=== PATIENT | female | born 1950 | race American Indian/Alaskan Native ===

== ENCOUNTER 2018-05-13 06:24 | Day surgery (SDC) | payer OTHER, SELFPAY ==
[2018-05-13] MEDS: PROPARACAINE 0.5% OPHTH SOL 2 DROPS EYE-OP (07:03)
[2018-05-13 07:07] VITALS: BP 124/74; PULSE 64; RESP 15; TEMP 36.1; O2SAT 94
[2018-05-13] MEDS: CATARACT EYE COMPOUND (10 DROPS/SYRINGE) 3 DROPS EYE-OP (07:07)
[2018-05-13 07:08] VITALS: BMI 37.8
--- NOTE | 2018-05-13 07:35 | PM.PREOP ---
Pre-operative Note Interval Note History & Physical reviewed/Exam performed by Physician: Yes Changes to H&P: No
[2018-05-13] MEDS: CHONDROIDTIN/SOD HYALURONATE 1.05 ML SYRINGE INTRAOCULA (07:54)
[2018-05-13] MEDS: LIDOCAINE JELLY 2% 5 ML 1 APPLIC TOP (07:54)
[2018-05-13] MEDS: BALANCED SALT IRRIG SOLN NO.2 500 ML, EPINEPHrine 1 MG IRR (07:55)
[2018-05-13] MEDS: PHENYLEPHRINE/LIDOCAINE VIAL (OR) 0.2 ML EYE-OP (07:57)
--- NOTE | 2018-05-13 08:18 | PM.OP.1 ---
Operative Date/Time/Diagnoses Pre-op diagnosis: Cataract left eye Post-op diagnosis: same Procedure & Clinicians Procedure: cataract extraction with intraocular lens implant, right Same procedure as scheduled: Yes Indications: Visually significant nuclear sclerosis cataract, right Surgeon: Mark Jerome Click Yes if Unassisted: Yes Anesthesia Type: MAC +/- Operative Notes Procedure in detail: The patient was brought to the operating suite. The correct patient, surgical site and lens were confirmed. 0.5 % tetracaine drops were placed in the right eye. The patient was prepped and draped in the typical sterile manner. A lid speculum was placed in the eye. 3.5% lidocaine gel was placed on the eye. A paracentesis port was created with a side-port blade. 0.1 mL of 1% preservative free lidocaine was injected into the anterior chamber. Viscoelastic was injected into the anterior chamber. A 2.6mm keratome was used to create a clear corneal temporal incision. Cystotome and Utrata forceps were used to create a continuous curvilinear capsulorrhexis. Balanced salt solution was used to hydrodissect the nucleus. Phacoemulsification was used to remove the lens. The capsular bag was inflated with viscoelastic. A Lange ZBOO +15.5D lens was inserted into the capsule. Viscoelastic was removed and the wound hydrated. The wound was found to be leak free and the eye was assessed to be at normal physiologic pressure. The lid speculum was removed and the patient left the operating room in excellent condition. Complications: none Condition: stable Disposition: same day surgery
[2018-05-13 08:30] VITALS: BP 137/61; PULSE 64; RESP 16; TEMP 36.7; O2SAT 99
--- NOTE | 2018-05-13 08:37 | SUR.PHASEII ---
Stable post op, pt dressed when ready and left when ready and in stable condition.
== END 2018-05-13 08:40 ==
LOC: OR 06:26
PROVIDERS: Family Provider Physician Assistant; PCP Physician Assistant; Visit Provider Ophthalmology
DX: H25.12 Age-related nuclear cataract, left eye (principal); E11.9 Type 2 diabetes mellitus without complications; E78.5 Hyperlipidemia, unspecified; Z79.4 Long term (current) use of insulin
CPT/HCPCS: J0171; J2250

== ENCOUNTER 2018-05-27 07:52 | Day surgery (SDC) | payer OTHER, SELFPAY ==
[2018-05-27 08:36] VITALS: BMI 38.2
[2018-05-27] MEDS: PROPARACAINE 0.5% OPHTH SOL 2 DROPS EYE-OP (08:41)
[2018-05-27] MEDS: CATARACT EYE COMPOUND (10 DROPS/SYRINGE) 3 DROPS EYE-OP (08:48)
[2018-05-27 08:49] VITALS: BP 133/67; PULSE 65; RESP 16; TEMP 36.2; O2SAT 98
--- NOTE | 2018-05-27 09:09 | PM.PREOP ---
Pre-operative Note Interval Note History & Physical reviewed/Exam performed by Physician: Yes Changes to H&P: No
[2018-05-27] MEDS: PHENYLEPHRINE/LIDOCAINE VIAL (OR) 0.2 ML EYE-OP (09:26)
[2018-05-27] MEDS: CHONDROIDTIN/SOD HYALURONATE 1.05 ML SYRINGE INTRAOCULA (09:26)
[2018-05-27] MEDS: TETRACAINE 0.5% OPHTH DROPS 4 ML 2 DROPS EYE-LEFT (09:27)
[2018-05-27] MEDS: BALANCED SALT IRRIG SOLN NO.2 500 ML, EPINEPHrine 1 MG IRR (09:27)
[2018-05-27] MEDS: LIDOCAINE 2% INJ SDV 5 ML INJ (09:40)
[2018-05-27 09:47] VITALS: BP 131/63; PULSE 59; RESP 16; TEMP 36.3; O2SAT 97
--- NOTE | 2018-05-27 09:47 | P.OP_ITS ---
Procedure & Clinicians Procedure: cataract extraction with intraocular lens implant, left Same procedure as scheduled: Yes Indications: Age related nuclear sclerosis visually significant, left Surgeon: Mark Jerome Click Yes if Unassisted: Yes Anesthesia Type: MAC +/- Operative Notes Procedure in detail: The patient was brought to the operating suite. The correct patient, surgical site and lens were confirmed. 0.5 % tetracaine drops were placed in the left eye. The patient was prepped and draped in the typical william rile manner. A lid speculum was placed in the eye. 2% lidocainewas placed on the eye. A paracentesis port was created with a side-port blade. 0.1 mL of 1% preservative free lidocaine was injected into the anterior chamber. Viscoelastic was injected into the anterior chamber. A 2.6mm keratome was used to create a clear corneal temporal incision. Cystotome and Utrata forceps were used to create a continuous curvilinear capsulorrhexis. Balanced salt solution was used to hydrodissect the nucleus. Phacoemulsification was used to remove the lens. The capsular bag was inflated with viscoelastic. A Lange ZBOO +16.5D lens was inserted into the capsule. Viscoelastic was removed and the wound hydrated. The wound was found to be leak free and the eye was assessed to be at normal physiologic pressure. The lid speculum was removed and the patient left the operating room in excellent condition. Complications: none Condition: stable Disposition: same day surgery
== END 2018-05-27 10:09 | disposition home or self-care (01) ==
LOC: OR 07:54
PROVIDERS: PCP Physician Assistant; Visit Provider Ophthalmology
DX: H25.12 Age-related nuclear cataract, left eye (principal); E11.9 Type 2 diabetes mellitus without complications; E78.5 Hyperlipidemia, unspecified
CPT/HCPCS: J0171; J2250; J3010

== ENCOUNTER → 2019-03-04 09:53 | Outpatient (CLI) | payer OTHER, SELFPAY ==
--- NOTE | 2019-03-04 | DI.MG.S_ITS ---
BILATERAL DIGITAL SCREENING MAMMOGRAM 3D/2D WITH CAD: 03/04/2019 CLINICAL: Routine screening. Family history of breast cancer. Comparison is made to exams dated: 10/29/2016 mammogram, 08/26/2013 mammogram, and 09/10/2006 mammogram - [facility]. There are scattered fibroglandular elements in both breasts. Current study was also evaluated with a Computer Aided Detection (CAD) system. No significant masses, calcifications, or other findings are seen in either breast. There has been no significant interval change. IMPRESSION: NEGATIVE There is no mammographic evidence of malignancy. A 1 year screening mammogram is recommended. This exam was interpreted at Station ID: [id number]. NOTE: For mammograms, a report in lay terms will be sent to the patient. Approximately 15% of breast malignancies will not be visualized mammographically. In the management of a palpable breast mass, a negative mammogram must not discourage biopsy of a clinically suspicious lesion. Electronically Signed By: Saw [email or web address]/[email or web address]:03/04/2019 12:47:32 letter sent: Normal Exam ACR BI-RADS Category 1: Negative [id number]
== END ==
PROVIDERS: PCP Physician Assistant; Visit Provider Family Medicine
DX: Z12.31 Encounter for screening mammogram for malignant neoplasm of breast (principal); Z80.3 Family history of malignant neoplasm of breast
CPT/HCPCS: 77063; 77067

== ENCOUNTER → 2019-08-24 11:07 | Outpatient (ROUT) | payer OTHER, SELFPAY ==
[2019-08-24 13:00] LABS: Collection Time Urine 24 Hours; Creatinine 24 Hour Urine 1134 mg/day (800-1800); Creatinine Urine Random 64.8 mg/dL; Total Volume Urine 1750 mL
[2019-08-25 07:15] LABS: 24 Hour Ur Protein Calculated 4277 mg/24 hr (30-150)
== END ==
PROVIDERS: PCP Physician Assistant; Visit Provider Family Medicine
DX: R80.9 Proteinuria, unspecified (principal)
CPT/HCPCS: 82570; 84156

== ENCOUNTER → 2019-11-22 11:00 | Outpatient (CLI) | payer OTHER, SELFPAY ==
--- NOTE | 2019-11-22 | DI.RAD.S_ITS ---
PROCEDURE: XR RIBS LT MIN 3V W CXR1V INDICATIONS: CONTUSION OF LEFT CHEST WALL, INITIAL ENCOUNTER TECHNIQUE: 2 views of the left ribs were acquired, along with a single view chest. COMPARISON: [facility], , CHEST 1 VIEW, 09/02/2016, 16:16. FINDINGS: Surgical changes and devices: None. Minimally displaced fracture of the left lateral 6th rib. Lungs and pleura: No pleural effusions or pneumothorax. Lungs appear clear. Mediastinum: Mediastinal contours appear normal. Heart size is normal. IMPRESSION: Minimally displaced fracture involving the lateral left 6th rib. Dictated by: Humza Gil M.D. on 11/22/2019 at 13:36 Approved by: Humza Gil M.D. on 11/22/2019 at 13:38
== END ==
PROVIDERS: PCP Family Medicine; Referring Provider Family Medicine; Visit Provider Family Medicine
DX: S22.32XA Fracture of one rib, left side, initial encounter for closed fracture (principal); S20.212A Contusion of left front wall of thorax, initial encounter; X58.XXXA Exposure to other specified factors, initial encounter
CPT/HCPCS: 71101

== ENCOUNTER → 2019-11-25 08:07 | Outpatient (CLI) | payer OTHER, SELFPAY ==
--- NOTE | 2019-11-25 | DI.US.S_ITS ---
PROCEDURE: US RENAL COMPLETE INDICATIONS: CKD TECHNIQUE: Real-time scanning was performed of the kidneys and bladder, with image documentation. COMPARISON: [facility], CT, ABDOMEN/PELVIS WITH CONTRAST, 01/18/2011, 19:58. FINDINGS: Kidneys: Kidneys are normal in size. The kidneys demonstrate mildly increased generalized echogenicity. Right kidney measures 11.4 cm long; left kidney measures 11.5 cm long. Right renal cortical thickness is 1.6 cm; left renal cortical thickness is 1.4 cm. Renal cortical echotexture is normal. No hydronephrosis or nephrolithiasis. No suspicious solid mass lesions. Bladder: Pre-void bladder volume is 177 mL. Post-void residual is 0 mL. Pre-void images demonstrate no intraluminal masses or stones. On pre-void images, only the left ureteral jet can be seen with color Doppler interrogation. (Of note, ureteral jets may not be detectable in up to 25% of cases due to insufficient differences in specific gravity between ureteral and bladder urine). Miscellaneous: No free pelvic fluid. Incidental note is made of prominent vessels adjacent to the spleen. IMPRESSION: Mildly increased echogenicity is seen in the kidneys, which is consistent with chronic medical renal disease. There is no hydronephrosis. No postvoid residual. Prominent vessels are again seen adjacent to the spleen. Dictated by: Jalil Cardenas M.D. on 11/25/2019 at 12:21 Approved by: Jalil Cardenas M.D. on 11/25/2019 at 12:23
== END ==
PROVIDERS: PCP Family Medicine; Referring Provider Family Medicine; Visit Provider Student in an Organized Health Care Education/Training Program
DX: N18.2 Chronic kidney disease, stage 2 (mild) (principal)
CPT/HCPCS: 76770

== ENCOUNTER → 2019-12-14 15:37 | Outpatient (CLI) | payer OTHER, SELFPAY ==
[2019-12-14 15:54] LABS: Bacteria Urine None Seen
[2019-12-14 16:36] LABS: HEMOLYSIS < 15 (0-50); Iron 67 ug/dL (37-170)
[2019-12-14 16:37] LABS: BUN Creatinine Ratio 7.5 (6-22); Blood Urea Nitrogen 11 mg/dL (7-17); Calcium 8.5 mg/dL (8.4-10.2); Carbon Dioxide 27 mmol/L (22-32); Chloride 109 mmol/L (98-107); Estimated Glomerular Filt Rate 35.3 mL/min (>60); Glucose 183 mg/dL (80-110); HEMOLYSIS < 15 (0-50); Sodium 139 mmol/L (137-145)
[2019-12-14 16:46] LABS: Appearance Urine UA CLEAR; Bilirubin Urine UA NEGATIVE (NEGATIVE); Color Urine UA YELLOW; Glucose Urine UA TRACE g/dL (Negative); Ketones Urine UA NEGATIVE (NEGATIVE); Leukocyte Esterase Urine UA NEGATIVE (NEGATIVE); Nitrite Urine UA NEGATIVE (Negative); Occult Blood Urine UA TRACE-LYSED (Negative); Protein Urine UA 3+ (Negative)
[2019-12-14 16:48] LABS: Percent Iron Saturation 29 % (15-50); Total Iron Binding Capacity 235 ug/dL (265-497); Transferrin 172 mg/dL (206-381)
[2019-12-14 17:04] LABS: Culture Indicated Urine Cult Not Indicated
[2019-12-14 17:05] LABS: RBC Urine 0-1/HPF (0-5/HPF); Renal Epithelial Cells Urine 0-1/HPF (0-1/HPF); Squamous Epithelial Cell Urine 0-1 /HPF (0-5/HPF); Transitional Epi Cells Urine 0-1/HPF (0-5/HPF); WBC Urine 1-5/HPF (0-5/HPF)
[2019-12-14 17:12] LABS: Ferritin 18 ng/mL (11-264)
[2019-12-15 05:02] LABS: Creatinine Urine Random 104.5 mg/dL
[2019-12-15 05:09] LABS: Protein (Total) Urine Random 582 mg/dL (0-12); Protein Creatinine Ratio Urine 5.56 GRAM/24H
[2019-12-15 09:41] LABS: Parathyroid Hormone Int 93 pg/mL (15-65)
[2019-12-15 15:35] LABS: ANA Screen, IFA Negative (.); Albumin 2.9 g/dL (2.9-4.4); Alpha-1-Globulin 0.2 g/dL (0.0-0.4); Alpha-2-Globulin 0.7 g/dL (0.4-1.0); DNA (DS) Antibody 5 IU/mL (0-9); Free Kappa Lt Chains, Serum 93.9 mg/L (3.3-19.4); Free Lambda Lt Chains,Serum 50.5 mg/L (5.7-26.3); Gamma Globulin 0.8 g/dL (0.4-1.8); Globulin Total 2.6 g/dL (2.2-3.9); Protein, Total 5.5 g/dL (6.0-8.5)
[2019-12-20 13:36] LABS: Cytoplasmic C-ANCA <1:20 titer (Neg:<1:20); Perinuclear P-ANCA <1:20 titer (Neg:<1:20)
[2019-12-21 20:52] LABS: Alpha-1 Globulin, Ur 7.8 % (.); Beta Globulin, Ur 15.4 % (.); Complement C3 123 mg/dL (82-167); Gamma Globulin, Ur 15.1 % (.); M-Spike % Not Observed % (Not Observed); Urine Total Protein 430.3 mg/dL (Not Estab.)
== END ==
PROVIDERS: PCP Family Medicine; Referring Provider Student in an Organized Health Care Education/Training Program; Visit Provider Student in an Organized Health Care Education/Training Program
DX: L93.2 Other local lupus erythematosus (principal); M31.30 Wegener's granulomatosis without renal involvement; M32.10 Systemic lupus erythematosus, organ or system involvement unspecified; N00.9 Acute nephritic syndrome with unspecified morphologic changes; N05.9 Unspecified nephritic syndrome with unspecified morphologic changes; D89.89 Other specified disorders involving the immune mechanism, not elsewhere classified; D50.0 Iron deficiency anemia secondary to blood loss (chronic); N25.81 Secondary hyperparathyroidism of renal origin; R80.9 Proteinuria, unspecified; D47.2 Monoclonal gammopathy; N30.00 Acute cystitis without hematuria
CPT/HCPCS: 36415; 80048; 81001; 82570; 82728; 83516; 83540; 83550; 83883; 83970; 84155; 84156; 84165; 84166; 86038; 86160; 86225

== ENCOUNTER → 2020-01-25 12:47 | Outpatient (CLI) | payer OTHER, SELFPAY ==
[2020-01-25 14:26] LABS: Hematocrit 30.5 % (36-46); Hemoglobin 10.3 g/dL (12.0-16.0)
[2020-01-25 15:01] LABS: BUN Creatinine Ratio 16.1 (6-22); Blood Urea Nitrogen 15 mg/dL (7-17); Calcium 8.8 mg/dL (8.4-10.2); Carbon Dioxide 29 mmol/L (22-32); Chloride 110 mmol/L (98-107); Glucose 138 mg/dL (80-110); HEMOLYSIS < 15 (0-50); Potassium 3.8 mmol/L (3.4-5.1); Sodium 143 mmol/L (137-145)
[2020-01-25 17:55] LABS: Creatinine Urine Random 75.2 mg/dL
[2020-01-25 18:00] LABS: Protein (Total) Urine Random 517 mg/dL (0-12); Protein Creatinine Ratio Urine 6.87 GRAM/24H
[2020-01-26 07:09] LABS: Parathyroid Hormone Int 43 pg/mL (15-65)
== END ==
PROVIDERS: PCP Family Medicine; Referring Provider Family Medicine; Visit Provider Student in an Organized Health Care Education/Training Program
DX: N05.9 Unspecified nephritic syndrome with unspecified morphologic changes (principal); D64.9 Anemia, unspecified; N25.81 Secondary hyperparathyroidism of renal origin; R80.9 Proteinuria, unspecified
CPT/HCPCS: 36415; 80048; 82570; 83970; 84156; 85014; 85018

== ENCOUNTER → 2020-03-02 16:23 | Outpatient (CLI) | payer OTHER, SELFPAY ==
[2020-03-02 18:07] LABS: Hematocrit 24.7 % (36-46); Hemoglobin 8.2 g/dL (12.0-16.0)
[2020-03-02 18:24] LABS: BUN Creatinine Ratio 7.5 (6-22); Blood Urea Nitrogen 10 mg/dL (7-17); Calcium 8.7 mg/dL (8.4-10.2); Carbon Dioxide 26 mmol/L (22-32); Chloride 111 mmol/L (98-107); Estimated Glomerular Filt Rate 39.7 mL/min (>60); Glucose 151 mg/dL (80-110); HEMOLYSIS < 15 (0-50); Potassium 3.7 mmol/L (3.4-5.1); Sodium 140 mmol/L (137-145)
[2020-03-02 18:26] LABS: Creatinine Urine Random 120.3 mg/dL
[2020-03-02 18:33] LABS: Protein (Total) Urine Random 522 mg/dL (0-12); Protein Creatinine Ratio Urine 4.33 GRAM/24H
[2020-03-04 07:07] LABS: Parathyroid Hormone Int 42 pg/mL (15-65)
== END ==
PROVIDERS: Student in an Organized Health Care Education/Training Program; PCP Family Medicine; Referring Provider Internal Medicine Nephrology; Visit Provider Internal Medicine Nephrology
DX: N05.9 Unspecified nephritic syndrome with unspecified morphologic changes (principal)
CPT/HCPCS: 36415; 80048; 82570; 83970; 84156; 85014; 85018

== ENCOUNTER → 2020-03-05 12:13 | Outpatient (CLI) | payer OTHER, SELFPAY ==
[2020-03-05 12:49] LABS: Hematocrit 25.8 % (36-46); Hemoglobin 8.7 g/dL (12.0-16.0)
[2020-03-05 13:02] LABS: HEMOLYSIS < 15 (0-50); Iron 91 ug/dL (37-170)
[2020-03-05 13:13] LABS: Percent Iron Saturation 35 % (15-50); Total Iron Binding Capacity 260 ug/dL (265-497); Transferrin 186 mg/dL (206-381)
[2020-03-05 13:22] LABS: Ferritin 9 ng/mL (11-264)
== END ==
PROVIDERS: PCP Family Medicine; Referring Provider Student in an Organized Health Care Education/Training Program; Visit Provider Student in an Organized Health Care Education/Training Program
DX: D50.0 Iron deficiency anemia secondary to blood loss (chronic) (principal); D64.9 Anemia, unspecified
CPT/HCPCS: 36415; 82728; 83540; 83550; 85014; 85018

== ENCOUNTER → 2020-03-29 15:46 | Outpatient (CLI) | payer OTHER, SELFPAY ==
[2020-03-29 16:04] LABS: Hematocrit 29.3 % (36-46); Hemoglobin 9.7 g/dL (12.0-16.0)
[2020-03-29 16:17] LABS: BUN Creatinine Ratio 9.6 (6-22); Blood Urea Nitrogen 17 mg/dL (7-17); Calcium 8.9 mg/dL (8.4-10.2); Carbon Dioxide 26 mmol/L (22-32); Chloride 111 mmol/L (98-107); Estimated Glomerular Filt Rate 28.3 mL/min (>60); Glucose 221 mg/dL (80-110); HEMOLYSIS < 15 (0-50); Potassium 4.1 mmol/L (3.4-5.1); Sodium 142 mmol/L (137-145)
[2020-03-29 16:25] LABS: HEMOLYSIS < 15 (0-50); Iron 30 ug/dL (37-170)
[2020-03-29 16:36] LABS: Percent Iron Saturation 11 % (15-50); Total Iron Binding Capacity 268 ug/dL (265-497); Transferrin 204 mg/dL (206-381)
[2020-03-29 16:52] LABS: Ferritin 11 ng/mL (11-264)
== END ==
PROVIDERS: PCP Family Medicine; Referring Provider Student in an Organized Health Care Education/Training Program; Visit Provider Student in an Organized Health Care Education/Training Program
DX: N05.9 Unspecified nephritic syndrome with unspecified morphologic changes (principal); D50.9 Iron deficiency anemia, unspecified; D64.9 Anemia, unspecified
CPT/HCPCS: 36415; 80048; 82728; 83540; 83550; 85014; 85018

== ENCOUNTER → 2020-05-03 13:27 | Outpatient (CLI) | payer OTHER, SELFPAY ==
[2020-05-03 16:13] LABS: Hematocrit 30.9 % (36-46); Hemoglobin 10.2 g/dL (12.0-16.0)
[2020-05-03 16:38] LABS: HEMOLYSIS < 15 (0-50); Iron 51 ug/dL (37-170)
[2020-05-03 16:43] LABS: BUN Creatinine Ratio 11.4 (6-22); Blood Urea Nitrogen 13 mg/dL (7-17); Calcium 8.9 mg/dL (8.4-10.2); Carbon Dioxide 28 mmol/L (22-32); Chloride 111 mmol/L (98-107); Estimated Glomerular Filt Rate 47.4 mL/min (>60); Glucose 118 mg/dL (80-110); HEMOLYSIS < 15 (0-50); Potassium 3.4 mmol/L (3.4-5.1); Sodium 141 mmol/L (137-145)
[2020-05-03 16:49] LABS: Percent Iron Saturation 20 % (15-50); Total Iron Binding Capacity 250 ug/dL (265-497); Transferrin 177 mg/dL (206-381)
[2020-05-03 17:16] LABS: Ferritin 19 ng/mL (11-264)
[2020-05-03 19:25] LABS: Creatinine Urine Random 99.9 mg/dL
[2020-05-03 20:36] LABS: Microalbumi Creatinin Ratio Ur 3523.5 ug/mg CR (<30)
== END ==
PROVIDERS: PCP Family Medicine; Referring Provider Student in an Organized Health Care Education/Training Program; Visit Provider Student in an Organized Health Care Education/Training Program
DX: N05.9 Unspecified nephritic syndrome with unspecified morphologic changes (principal); D50.0 Iron deficiency anemia secondary to blood loss (chronic); D64.9 Anemia, unspecified; R80.9 Proteinuria, unspecified
CPT/HCPCS: 36415; 80048; 82043; 82570; 82728; 83540; 83550; 85014; 85018

== ENCOUNTER → 2020-05-31 09:15 | Outpatient (CLI) | payer OTHER, SELFPAY ==
--- NOTE | 2020-05-31 09:17 | DI.ECHO.S_ITS ---
[facility] +---------+ : : [address] : [place] : : : : [id number] : : : : Phone: [phone]+ Echocardiogram Report + + :Name: EDELMIRA GUTIERREZ Study Date: 05/31/2020 Height: 60 in : :[facility] ReadingLocation: Weight: 186 lb : : Gender: Female BSA: 1.8 m2 : :: 1950 Age: 69 yrs BP: 134/70 mmHg: :Reason For Study: PALPITATIONS : :Ordering Physician: ELLEN, : :EMMA JONES Performed By: Asha Marinelli : :Referring: EMMA BAILEY : + + Interpretation Summary There is mild concentric left ventricular hypertrophy. The ejection fraction is estimated to be 60-65%. The left atrium is severely dilated. There is mild aortic regurgitation. The ascending aorta is mildly enlarged. Procedure: A two-dimensional transthoracic echocardiogram with color flow and Doppler was performed. The study quality was technically adequate. There is no prior echocardiogram noted for this patient. The patient was in sinus bradycardia with heart rates between 52-59 bpm during the exam. Left Ventricle: The left ventricle is normal in size. There is mild concentric left ventricular hypertrophy. The ejection fraction is estimated to be 60-65%. Left ventricular wall motion is normal. Diastolic parameters suggest a relaxation abnormality of the left ventricle, consistent with probable normal filling pressures. Right Ventricle: The right ventricle is normal in size and function. Atria: The left atrium is severely dilated. The right atrium is mildly dilated. There is no Doppler evidence for an interatrial shunt. Mitral Valve: The mitral valve is normal in structure and function. There is trace mitral regurgitation. Aortic Valve: The aortic valve is trileaflet. The aortic valve opens well. The aortic valve is slightly calcified. There is no aortic valve stenosis. There is mild aortic regurgitation. Tricuspid Valve: The tricuspid valve is normal in structure and function. There is trace tricuspid regurgitation. Pulmonary artery pressures cannot be estimated because of the lack of a measurable TR jet velocity but the IVC suggests a CVP of around 3 mmHg. Pulmonic Valve: The pulmonic valve leaflets are thin and pliable; valve motion is normal. There is mild pulmonic regurgitation. Great Vessels: The aortic root is normal size. The ascending aorta is mildly enlarged. The IVC is of normal diameter and collapses greater than 50% with a sniff. This suggests a low right atrial pressure of 3 mm Hg. Pericardium/ Pleura There is no pericardial effusion. There is no pleural effusion. MMode/2D Measurements & Calculations LVIDd: 4.9 cm LVOT diam: 2.1 cm LVIDs: 3.2 cm Ao root diam: 3.2 cm FS: 35.9 % asc Aorta Diam: 3.4 cm EPSS: 0.74 cm Ao Arch Diam (Prox Trans): 3.1 cm IVSd: 1.2 cm LVPWd: 1.3 cm LV arciniega. diameter/BSA (cm/m^2): 2.7 LV sys. diameter/BSA (cm/m^2): 1.7 LA A2 area: 27.3 cm2 RA long axis: 5.2 cm LA A4 area: 23.6 cm2 RA area: 20.7 cm2 LA length (vol): 5.6 cm RA vol: 69.8 ml LA vol: 97.8 ml RA : 38.5 ml/m2 LA vol index: 54.0 ml/m2 IVC diam: 1.6 cm RVD1 (basal): 3.1 cm TAPSE: 2.5 cm Doppler Measurements & Calculations Ao V2 max: 191.0 cm/sec LVOT Max Maged: 127.2 cm/sec Ao V2 mean: 126.0 cm/sec LV V1 max P.5 mmHg Ao max P.6 mmHg LV V1 VTI: 32.3 cm Ao mean P.4 mmHg DAVE(I,D): 2.5 cm2 Ao V2 VTI: 44.8 cm DAVE(V,D): 2.3 cm2 sev ratio: 0.72 DAVE indexed to BSA (cm^2/m^2): 1.4 MV E max maged: 89.8 cm/sec PA V2 max: 89.6 cm/sec MV A max maged: 105.9 cm/sec PA V2 mean: 53.0 cm/sec MV E/A: 0.85 PA mean P.4 mmHg Med Peak E' Maged: 6.3 cm/sec PA pr(Accel): 12.2 mmHg E/E' med: 14.2 Lat Peak E' Maged: 7.3 cm/sec E/E' lat: 12.3 E/e' average: 13.3 MV dec time: 0.25 sec SV(LVOT): 110.6 ml Reading Physician:12:47 PM
== END ==
PROVIDERS: PCP Family Medicine; Referring Provider Family Medicine; Visit Provider Family Medicine
DX: I35.1 Nonrheumatic aortic (valve) insufficiency (principal); I77.89 Other specified disorders of arteries and arterioles; R00.2 Palpitations
CPT/HCPCS: 93306

== ENCOUNTER → 2020-07-09 16:44 | Outpatient (CLI) | payer OTHER, SELFPAY ==
[2020-07-09 17:31] LABS: BUN Creatinine Ratio 7.9 (6-22); Blood Urea Nitrogen 11 mg/dL (7-17); Calcium 8.8 mg/dL (8.4-10.2); Carbon Dioxide 25 mmol/L (22-32); Chloride 112 mmol/L (98-107); Estimated Glomerular Filt Rate 37.7 mL/min (>60); Glucose 161 mg/dL (80-110); HEMOLYSIS < 15 (0-50); Sodium 141 mmol/L (137-145)
[2020-07-09 17:38] LABS: Creatinine Urine Random 116.1 mg/dL
[2020-07-09 17:59] LABS: Protein (Total) Urine Random 710 mg/dL (0-12); Protein Creatinine Ratio Urine 6.11 GRAM/24H
== END ==
PROVIDERS: PCP Family Medicine; Referring Provider Student in an Organized Health Care Education/Training Program; Visit Provider Student in an Organized Health Care Education/Training Program
DX: N05.9 Unspecified nephritic syndrome with unspecified morphologic changes (principal)
CPT/HCPCS: 36415; 80048; 82570; 84156

== ENCOUNTER → 2020-11-02 15:18 | Outpatient (CLI) | payer OTHER, SELFPAY ==
[2020-11-02 16:28] LABS: Add Manual Diff / Slide Review NO; Basophils Absolute Auto 0 /uL (0-100); Basophils Percent Auto 0.6 % (0-2); Eosinophils Absolute Auto 200 /uL (0-450); Eosinophils Percent Auto 4.3 % (2-4); Hematocrit 29.9 % (36-46); Hemoglobin 10.2 g/dL (12.0-16.0); Lymphocytes Absolute Auto 2000 /uL (1100-4500); Mean Corpuscular HGB Conc 34.2 % (30-36); Mean Corpuscular Hemoglobin 29.6 PG (26-34); Mean Corpuscular Volume 86.5 fL (80-100); Monocytes Absolute Auto 400 /uL (0-900); Monocytes Percent Auto 7.6 % (3-14); Neutrophils Absolute Auto 2800 /uL (1500-7000); Neutrophils Percent Auto 51.5 % (50-75); Platelet Count 252 X10^3/uL (150-400); Red Blood Cell Count 3.46 X10^6/uL (4.0-5.2); Red Cell Distribution Width 14.4 % (11.6-14.8); White Blood Cell Count 5.5 X10^3/uL (4.5-11.0)
[2020-11-02 16:58] LABS: Hemoglobin A1C% w Est Avg Glu 6.3 % (4.0-6.0)
[2020-11-02 17:01] LABS: Alanine Aminotransferase 15 IU/L (<35); Albumin 2.9 g/dL (3.5-5.0); Alkaline Phosphatase 78 U/L (38-126); Aspartate Aminotransferase 23 IU/L (14-36); BUN Creatinine Ratio 10.5 (6-22); Bilirubin Total 0.5 mg/dL (0.2-1.3); Blood Urea Nitrogen 18 mg/dL (7-17); Carbon Dioxide 24 mmol/L (22-32); Chloride 112 mmol/L (98-107); Cholesterol 209 mg/dL (140-199); Estimated Glomerular Filt Rate 29.5 mL/min (>60); Glucose 150 mg/dL (80-110); HDL Cholesterol 36 mg/dL (40-60); HEMOLYSIS < 15 (0-50); LDL Cholesterol Calculated 132 mg/dL (<100); Potassium 3.8 mmol/L (3.4-5.1); Sodium 140 mmol/L (137-145); Total Protein 5.9 g/dL (6.3-8.2); Triglycerides 206 mg/dL (35-150)
[2020-11-02 18:39] LABS: Creatinine Urine Random 72.3 mg/dL
[2020-11-02 18:56] LABS: Protein (Total) Urine Random 586 mg/dL (0-12)
[2020-11-03 11:21] LABS: Parathyroid Hormone Int 35 pg/mL (15-65)
== END ==
PROVIDERS: PCP Physician Assistant; Referring Provider Student in an Organized Health Care Education/Training Program; Visit Provider Student in an Organized Health Care Education/Training Program
DX: R60.0 Localized edema (principal); E11.9 Type 2 diabetes mellitus without complications; N05.9 Unspecified nephritic syndrome with unspecified morphologic changes; D64.9 Anemia, unspecified; N25.81 Secondary hyperparathyroidism of renal origin; R80.9 Proteinuria, unspecified
CPT/HCPCS: 36415; 80053; 80061; 82570; 83036; 83970; 84156; 85025

== ENCOUNTER → 2020-11-21 10:15 | Outpatient (CLI) | payer OTHER, SELFPAY ==
[2020-11-21 12:09] LABS: BUN Creatinine Ratio 10.6 (6-22); Blood Urea Nitrogen 16 mg/dL (7-17); Calcium 8.8 mg/dL (8.4-10.2); Carbon Dioxide 28 mmol/L (22-32); Chloride 111 mmol/L (98-107); Estimated Glomerular Filt Rate 34.3 mL/min (>60); Glucose 109 mg/dL (80-110); HEMOLYSIS < 15 (0-50); Potassium 3.3 mmol/L (3.4-5.1); Sodium 142 mmol/L (137-145)
[2020-11-21 16:17] LABS: Creatinine Urine Random 26.9 mg/dL
[2020-11-21 16:25] LABS: Protein (Total) Urine Random 389 mg/dL (0-12); Protein Creatinine Ratio Urine 14.46 GRAM/24H
== END ==
PROVIDERS: PCP Physician Assistant; Referring Provider Student in an Organized Health Care Education/Training Program; Visit Provider Student in an Organized Health Care Education/Training Program
DX: N05.9 Unspecified nephritic syndrome with unspecified morphologic changes (principal); R80.9 Proteinuria, unspecified
CPT/HCPCS: 36415; 80048; 82570; 84156

== ENCOUNTER → 2020-11-27 16:31 | Outpatient (CLI) | payer OTHER, SELFPAY ==
[2020-11-27 18:32] LABS: BUN Creatinine Ratio 8.9 (6-22); Blood Urea Nitrogen 15 mg/dL (7-17); Calcium 8.7 mg/dL (8.4-10.2); Carbon Dioxide 24 mmol/L (22-32); Chloride 111 mmol/L (98-107); Estimated Glomerular Filt Rate 30.3 mL/min (>60); Glucose 145 mg/dL (80-110); HEMOLYSIS < 15 (0-50); Potassium 4.1 mmol/L (3.4-5.1); Sodium 141 mmol/L (137-145)
== END ==
PROVIDERS: PCP Physician Assistant; Referring Provider Student in an Organized Health Care Education/Training Program; Visit Provider Student in an Organized Health Care Education/Training Program
DX: N05.9 Unspecified nephritic syndrome with unspecified morphologic changes (principal)
CPT/HCPCS: 36415; 80048

== ENCOUNTER → 2021-01-07 14:57 | Outpatient (CLI) | payer OTHER, SELFPAY ==
[2021-01-07 15:55] LABS: Hematocrit 29.4 % (36-46)
[2021-01-07 16:26] LABS: BUN Creatinine Ratio 8.3 (6-22); Blood Urea Nitrogen 12 mg/dL (7-17); Calcium 8.7 mg/dL (8.4-10.2); Carbon Dioxide 26 mmol/L (22-32); Chloride 111 mmol/L (98-107); Estimated Glomerular Filt Rate 36.1 mL/min (>60); Glucose 233 mg/dL (80-110); HEMOLYSIS < 15 (0-50); Potassium 3.4 mmol/L (3.4-5.1); Sodium 141 mmol/L (137-145)
[2021-01-07 16:29] LABS: Creatinine Urine Random 167.8 mg/dL
[2021-01-07 17:30] LABS: Protein (Total) Urine Random 3092 mg/dL (0-12); Protein Creatinine Ratio Urine 18.42 GRAM/24H
== END ==
PROVIDERS: PCP Physician Assistant; Referring Provider Student in an Organized Health Care Education/Training Program; Visit Provider Student in an Organized Health Care Education/Training Program
DX: N05.9 Unspecified nephritic syndrome with unspecified morphologic changes (principal); D64.9 Anemia, unspecified; R80.9 Proteinuria, unspecified
CPT/HCPCS: 36415; 80048; 82570; 84156; 85014; 85018

== ENCOUNTER → 2021-02-11 14:31 | Outpatient (CLI) | payer OTHER, SELFPAY ==
[2021-02-11 15:30] LABS: Blood Urea Nitrogen 14 mg/dL (7-17); Calcium 8.2 mg/dL (8.4-10.2); Carbon Dioxide 25 mmol/L (22-32); Chloride 111 mmol/L (98-107); Estimated Glomerular Filt Rate 28.6 mL/min (>60); Glucose 176 mg/dL (80-110); HEMOLYSIS < 15 (0-50); Potassium 4.2 mmol/L (3.4-5.1); Sodium 137 mmol/L (137-145)
[2021-02-11 16:10] LABS: Protein (Total) Urine Random 531 mg/dL (0-12); Protein Creatinine Ratio Urine 12.06 GRAM/24H
== END ==
PROVIDERS: PCP Physician Assistant; Referring Provider Student in an Organized Health Care Education/Training Program; Visit Provider Family Medicine
DX: N05.9 Unspecified nephritic syndrome with unspecified morphologic changes (principal); R60.9 Edema, unspecified
CPT/HCPCS: 36415; 80048; 82570; 84156

== ENCOUNTER 2021-03-09 14:31 | Emergency (ER) | payer OTHER, SELFPAY ==
[2021-03-09 14:41] VITALS: BP 116/56; PULSE 58; RESP 18; TEMP 36.8; O2SAT 99; BMI 37.0
--- NOTE | 2021-03-09 14:50 | DI.RAD.S_ITS ---
PROCEDURE: XR LUMBAR SPINE 2-3V INDICATIONS: POP WITH SEVERE PAIN TECHNIQUE: To views of the lumbar spine were acquired. COMPARISON: [facility], , L-SPINE 2-3 VIEWS, 04/21/2012, 16:05. FINDINGS: Bones: 5 [id number] vertebrae are present. There is a mild leftward curvature of the lumbar spine centered at L4. Grade 1 anterolisthesis is redemonstrated at L4-5, measuring approximately 0.7 cm. There is minimal retrolisthesis at L1-L2 and L2-L3 also redemonstrated. No vertebral body compression fractures. There is multilevel mild to moderate degenerative disc disease throughout the lumbar spine. There is also moderate facet arthropathy in the lower lumbar spine. Soft tissues: Overlying bowel gas pattern is normal. No suspicious soft tissue calcifications. IMPRESSION: 1. No definite acute fracture or subluxation. 2. Mild leftward curvature of the lumbar spine and mild multilevel spondylolisthesis redemonstrated. 3. Mild to moderate multilevel degenerative disc disease and moderate facet arthropathy in the lower lumbar spine. Dictated by: Rocky Lynne M.D. on 03/09/2021 at 14:23 Approved by: Rocky Lynne M.D. on 03/09/2021 at 14:26
--- NOTE | 2021-03-09 17:08 | ED.BACK ---
HPI - Back Pain/Injury General Chief Complaint: Back Pain/Injury Stated Complaint: lower back popped, clamy,sweaty and dizzy Time Seen by Provider: 03/09/21 17:06 Source: patient Limitations: no limitations History of Present Illness HPI Narrative: 70-year-old female nonsmoker with history of diabetes and hyperlipidemia presents with a friend and a chief complaint of back pain while performing a [place] dance just prior to arrival. She states that she had done a little ?hop ?move and leaned back of it and felt a pop in her lower back. She states the pain is worse when she moves and improves with rest. She did not fall. She denies any numbness, tingling, weakness or footdrop. She denies any fever, chills or use of blood thinners. She denies the loss of control of bowel or bladder. Her pain is worse when she moves and improves with rest Related Data Home Medications Medication Instructions Recorded Confirmed metformin 500 mg tablet,extended 1,000 mg PO DAILY #0 01/18/11 05/27/18 release 24 hr (Glucophage XR) insulin glargine 100 unit/mL 55 unit SUBCUT DAILY 05/13/18 05/27/18 subcutaneous solution (Lantus U-100 Insulin) Previous Rx's Medication Instructions Recorded aspirin 325 mg tablet,delayed 325 mg PO QDAY #30 tab 09/04/16 release atorvastatin 40 mg tablet (Lipitor) 40 mg PO HS #30 tab 09/04/16 lisinopril 20 mg tablet 20 mg PO QDAY #30 tab 09/04/16 lidocaine 5 % topical patch 1 patch TOP DAILY #15 each 03/09/21 (Lidoderm) Allergies Allergy/AdvReac Type Severity Reaction Status Date / Time fluoxetine Allergy Unknown edema Verified 03/09/21 14:40 naproxen Allergy Unknown its too Verified 03/09/21 14:40 much for me ofloxacin Allergy Unknown Unknown Verified 03/09/21 14:40 Review of Systems Review of Systems Narrative: GENERAL: Denies chills, fatigue, malaise, fever, sweats. HEENT: Denies sinus pain, ear pain, sore throat, difficulty swallowing, dizziness. RESPIRATORY: Denies dyspnea, cough, wheezing, hemoptysis, sputum. CARDIOVASCULAR: Denies chest pain, palpitations, orthopnea, edema, GASTROINTESTINAL: Denies nausea, vomiting, abdominal pain, diarrhea, constipation, melena. : Denies dysuria, frequency, incontinence, hematuria, urinary retention. MUSCULOSKELETAL: See HPI SKIN: Denies rash, skin lesions, or other NEUROLOGIC: Denies weakness, headache, numbness, change in speech, confusion, seizures, incoordination. PSYCHIATRIC: No concerning psychosocial issues. 12 point review of systems is negative except for those stated above Patient History Social History household members: spouse and children Smoking Status: Never smoker Smoking Status: Never smoker Substance Use Type: does not use Exam Narrative Exam Narrative: GENERAL: [70 year old patient appears stated age. Well-developed patient, in mild distress. HEAD: Atraumatic. Normocephalic. EYES: Pupils equal round and reactive. Extraocular motions intact. No scleral icterus. No injection or drainage. ENT: Nose without bleeding, purulent drainage. Throat without erythema, tonsillar hypertrophy or exudate. Airway patent. NECK: Trachea midline. Non tender CARDIOVASCULAR: Regular rate and rhythm without murmurs, gallops, or rubs. RESPIRATORY: Clear to auscultation. Breath sounds equal bilaterally. No wheezes, rales, or rhonchi. GASTROINTESTINAL: Abdomen soft, non-tender, nondistended. EXTREMITIES: No edema or joint tenderness. BACK: slasher tender but free of any obvious external abnormalities. Patient exam notes decreased range of motion and muscle spasm, but no CVA tenderness, or vertebral point tenderness. There are no symptoms of cauda equina such as saddle anesthesia, and decreased reflexes, decreased sensation or strength. NEURO: AOx3. SKIN: No rash or erythema of visible areas Initial Vital Signs Initial Vital Signs: Vital Signs Temperature 98.3 F 03/09/21 14:41 Pulse Rate 58 L 03/09/21 14:41 Respiratory Rate 18 03/09/21 14:41 Blood Pressure 116/56 L 03/09/21 14:41 Pulse Oximetry 99 03/09/21 14:41 Course Orders Ordered: ED Orders 03/09/21 14:50 XR lumbar spine 2-3V Stat Discontinued Medications Cyclobenzaprine HCl (Cyclobenzaprine 10 Mg Prepack) 1 bottle MISC SEEINSTR ONE Stop: 03/09/21 17:31 Last Admin: 03/09/21 17:39 Dose: 1 bottle Documented by: ASHLYN Lidocaine (Lidocaine Patch 1 Each Adh..Patch) 1 each TOP NOW ONE Stop: 03/09/21 17:31 Last Admin: 03/09/21 17:39 Dose: 1 each Documented by: ASHLYN Vital Signs Vital signs: Vital Signs - 8 hr 03/09/21 14:41 Temperature 98.3 F Pulse Rate 58 L Respiratory Rate 18 Blood Pressure 116/56 L Pulse Oximetry 99 MDM - Back Pain/Injury Imaging Data Extremity x-ray #1: Radiologist's Impression: Heather Roberts??70??F??1950 ? Allergy/Adv: fluoxetine, naproxen, ofloxacin (More??) Close Lumbar Spine X-Ray (Signed) Rocky Lynne - 03/09/21 Echocardiogram Ultrasound (Signed) EleanorNils - 05/31/20 Renal Ultrasound (Signed) Jalil Cardenas - 11/25/19 Ribs X-Ray (Signed) Humza Gil - 11/22/19 Mammogram Screening (Signed) Saw Robins - 03/04/19 Radiology - Historical 09/03/16 Radiology - Historical 09/02/16 Radiology - Historical 09/02/16 Launch?[place] [address] XRay Report Signed Patient: Heather Roberts MR#: [id number] : 1950 Acct:[id number] Age/Sex: 70 / F Date of Service: 03/09/21 Loc: ED Accession Number: [id number] ?? Procedure: XR lumbar spine 2-3V Ordering Provider: Lori Rice D.O. PROCEDURE:? XR LUMBAR SPINE 2-3V ? INDICATIONS:? POP WITH SEVERE PAIN ? TECHNIQUE:? To views of the lumbar spine were acquired.? ? COMPARISON:? [facility], , L-SPINE 2-3 VIEWS, 04/21/2012, 16:05. ? FINDINGS:? ? Bones:? 5 [id number] vertebrae are present.? There is a mild leftward curvature of the lumbar spine centered at L4.? Grade 1 anterolisthesis is redemonstrated at L4-5, measuring approximately 0.7 cm.? There is minimal retrolisthesis at L1-L2 and L2-L3 also redemonstrated.? No vertebral body compression fractures.? There is multilevel mild to moderate degenerative disc disease throughout the lumbar spine.? There is also moderate facet arthropathy in the lower lumbar spine. ? Soft tissues:? Overlying bowel gas pattern is normal.? No suspicious soft tissue calcifications.? ? IMPRESSION:? ? 1. No definite acute fracture or subluxation. ? 2. Mild leftward curvature of the lumbar spine and mild multilevel spondylolisthesis redemonstrated. ? 3. Mild to moderate multilevel degenerative disc disease and moderate facet arthropathy in the lower lumbar spine. ? ? Dictated by: Rocky Lynne M.D. on 03/09/2021 at 14:23 ? ? Approved by: Rocky Lynne M.D. on 03/09/2021 at 14:26 ? MDM Narrative Medical decision making narrative: Multiple etiologies of back pain considered including; Epidural abscess, cauda equina, mass occupying lesion, and other considered, however no red flag symptoms consistent with a neuro surgical emergency are readily apparent. Patient has a reassuring history and physical exam. Imaging is unremarkable. Pain is well controlled above-stated therapies. She does well with a walker. Questions have been answered to her apparent satisfaction. Return precautions given. Discharge Plan Departure Patient Disposition: Home Clinical Impression: Lumbar back pain Instructions: DI for Low Back Pain Activity Restrictions/Additional Instructions: *You have been diagnosed with [low back pain, your physical exam, history and x-rays are very reassuring. There is no evidence of fracture or neuro surgical emergency *What to do: *Please continue to take your regular medications as directed. [ ] New medication prescriptions sent to your pharmacy: [ ] [ x] New medication written as a paper prescription [ ] No new medications given *Please follow up with your primary care provider in 2-3 days, call for an appointment. Let them know you were seen in the Emergency Department and that we ask that you be seen in follow up. We will electronically transmit a record of today's note if your PCP is in our system *If you do not have a primary care provider please contact the [facility] Resource line at [phone]. They will ask some questions about your medical history and help get you set up with a doctor in the community. *Return to Emergency Department if you should have any new, worsening or concerning symptoms, such as [fever greater than 101 F, shaking chills, worsening pain, persistent vomiting or other bothersome symptoms] Prescriptions: New lidocaine [Lidoderm] 5 % adhesive patch,medicated 1 patch TOP DAILY Qty: 15 0RF Rx Instructions: leave on most painful area for 12 hrs No Action metformin [Glucophage XR] 500 MG tablet extended release 24 hr 1,000 mg PO DAILY Qty: 0 0RF aspirin 325 MG tablet,delayed release (DR/EC) 325 mg PO QDAY Qty: 30 0RF atorvastatin [Lipitor] 40 MG tablet 40 mg PO HS Qty: 30 0RF lisinopril 20 MG tablet 20 mg PO QDAY Qty: 30 0RF Lantus U-100 Insulin 100 unit/mL Solution 55 unit SUBCUT DAILY 0RF Referrals: Arelis Chase MD [Primary Care Provider] -
[2021-03-09] MEDS: CYCLOBENZAPRINE 10 MG PREPACK 1 BOTTLE MISC (17:39)
[2021-03-09] MEDS: LIDOCAINE PATCH 1 EACH ADH..PATCH TOP (17:39)
== END 2021-03-09 18:07 | disposition home or self-care (01) ==
PROVIDERS: Emergency Provider Emergency Medicine; PCP Family Medicine
DX: M54.50 Low back pain, unspecified (principal)
CPT/HCPCS: 72100; 99282; 99283

== ENCOUNTER → 2021-04-09 15:10 | Outpatient (CLI) | payer OTHER, SELFPAY ==
--- NOTE | 2021-04-09 15:14 | DI.RAD.S_ITS ---
PROCEDURE: XR CHEST 2V INDICATIONS: COUGH TECHNIQUE: 2 views of the chest were acquired. COMPARISON: [facility], , CHEST 1 VIEW, 09/02/2016, 16:16. [facility], , XR RIBS LT MIN 3V W CXR1V, 11/22/2019, 11:24. FINDINGS: Surgical changes and devices: None. Lungs and pleura: Lungs are clear, aside from 1.8 cm radiodensity involving the right lung base.. No pleural effusions or pneumothorax. Mediastinum: Mediastinal contours are normal. Heart size is normal. Bones and chest wall: No suspicious bony abnormalities. Soft tissues appear unremarkable. IMPRESSION: 1.8 cm spiculated radiodensity involving the right lung base which is new compared to prior examination. Although findings may be related to focal rounded atelectasis or possibly pneumonia, pulmonary nodule cannot be excluded and clinical correlation is recommended. Recommend repeat chest radiograph in 30 days to assess for interval clearing and if the density persists, recommend chest CT scan. Dictated by: Jaciel AGUILAR Interpreted: Vilma Horton MD on 04/09/2021 at 16:22 Transcribed by: SABA on 04/09/2021 at 16:25 Approved by: Vilma Horton M.D. on 04/09/2021 at 20:56
== END ==
PROVIDERS: PCP Family Medicine; Referring Provider Physician Assistant; Visit Provider Physician Assistant
DX: J45.20 Mild intermittent asthma, uncomplicated (principal); R91.8 Other nonspecific abnormal finding of lung field
CPT/HCPCS: 71046

== ENCOUNTER → 2021-04-15 16:54 | Outpatient (CLI) | payer OTHER, SELFPAY ==
[2021-04-15 17:38] LABS: Hematocrit 29.1 % (36-46); Hemoglobin 10.2 g/dL (12.0-16.0)
[2021-04-15 17:54] LABS: Creatinine Urine Random 97.3 mg/dL
[2021-04-15 17:55] LABS: BUN Creatinine Ratio 7.6 (6-22); Blood Urea Nitrogen 13 mg/dL (7-17); Calcium 8.5 mg/dL (8.4-10.2); Carbon Dioxide 28 mmol/L (22-32); Chloride 113 mmol/L (98-107); Estimated Glomerular Filt Rate 29.8 mL/min (>60); Glucose 83 mg/dL (80-110); HEMOLYSIS < 15 (0-50); Potassium 3.7 mmol/L (3.4-5.1); Sodium 142 mmol/L (137-145)
[2021-04-15 18:36] LABS: Protein (Total) Urine Random 1142 mg/dL (0-12); Protein Creatinine Ratio Urine 11.73 GRAM/24H
[2021-04-16 08:13] LABS: Parathyroid Hormone Int 59 pg/mL (15-65)
== END ==
PROVIDERS: PCP Family Medicine; Referring Provider Student in an Organized Health Care Education/Training Program; Visit Provider Student in an Organized Health Care Education/Training Program
DX: N05.9 Unspecified nephritic syndrome with unspecified morphologic changes (principal); D64.9 Anemia, unspecified; N25.81 Secondary hyperparathyroidism of renal origin; R80.9 Proteinuria, unspecified
CPT/HCPCS: 36415; 80048; 82570; 83970; 84156; 85014; 85018

== ENCOUNTER → 2021-06-21 10:39 | Outpatient (CLI) | payer OTHER, SELFPAY ==
[2021-06-21 11:23] LABS: Hematocrit 25.3 % (36-46); Hemoglobin 8.7 g/dL (12.0-16.0)
[2021-06-21 11:49] LABS: BUN Creatinine Ratio 11.2 (6-22); Blood Urea Nitrogen 19 mg/dL (7-17); Calcium 8.3 mg/dL (8.4-10.2); Carbon Dioxide 25 mmol/L (22-32); Chloride 114 mmol/L (98-107); Estimated Glomerular Filt Rate 29.8 mL/min (>60); Glucose 119 mg/dL (80-110); HEMOLYSIS < 15 (0-50); Potassium 3.8 mmol/L (3.4-5.1); Sodium 142 mmol/L (137-145)
[2021-06-21 12:19] LABS: Creatinine Urine Random 95.9 mg/dL
[2021-06-21 12:51] LABS: Protein (Total) Urine Random 1326 mg/dL (0-12); Protein Creatinine Ratio Urine 13.82 GRAM/24H
== END ==
PROVIDERS: PCP Family Medicine; Referring Provider Student in an Organized Health Care Education/Training Program; Visit Provider Student in an Organized Health Care Education/Training Program
DX: N05.9 Unspecified nephritic syndrome with unspecified morphologic changes (principal); D64.9 Anemia, unspecified; R80.9 Proteinuria, unspecified
CPT/HCPCS: 36415; 80048; 82570; 84156; 85014; 85018

== ENCOUNTER 2021-07-18 11:33 | Emergency (ER) | payer OTHER, SELFPAY ==
[2021-07-18] VITALS (17 sets, daily range): BP systolic 146–232; BP diastolic 67–95; PULSE 65–80; RESP 18–24; TEMP 36.6; O2SAT 95–100; BMI 34.7
[2021-07-18 12:07] LABS: Add Manual Diff / Slide Review NO; Basophils Absolute Auto 0 /uL (0-100); Basophils Percent Auto 0.3 % (0-2); Eosinophils Absolute Auto 300 /uL (0-450); Hematocrit 26.7 % (36-46); Lymphocytes Absolute Auto 1100 /uL (1100-4500); Lymphocytes Percent Auto 17.1 % (25-40); Mean Corpuscular HGB Conc 33.8 % (30-36); Mean Corpuscular Hemoglobin 29.3 PG (26-34); Mean Corpuscular Volume 86.7 fL (80-100); Monocytes Absolute Auto 600 /uL (0-900); Monocytes Percent Auto 9.1 % (3-14); Neutrophils Absolute Auto 4400 /uL (1500-7000); Neutrophils Percent Auto 69.5 % (50-75); Platelet Count 220 X10^3/uL (150-400); Red Blood Cell Count 3.07 X10^6/uL (4.0-5.2); Red Cell Distribution Width 15.5 % (11.6-14.8); White Blood Cell Count 6.4 X10^3/uL (4.5-11.0)
[2021-07-18 12:20] LABS: Alanine Aminotransferase 15 IU/L (<35); Albumin 2.6 g/dL (3.5-5.0); Albumin Globulin Ratio 0.8 (1.0-2.8); Alkaline Phosphatase 81 U/L (38-126); Aspartate Aminotransferase 26 IU/L (14-36); BUN Creatinine Ratio 8.4 (6-22); Bilirubin Total 0.6 mg/dL (0.2-1.3); Blood Urea Nitrogen 16 mg/dL (7-17); Calcium 7.9 mg/dL (8.4-10.2); Carbon Dioxide 25 mmol/L (22-32); Chloride 113 mmol/L (98-107); Creatine Kinase 144 U/L (30-135); Estimated Glomerular Filt Rate 28 mL/min (>60); Globulin 3.1 g/dL (1.7-4.1); Glucose 56 mg/dL (80-110); HEMOLYSIS < 15 (0-50); Lipase 39 U/L (23-300); Potassium 2.9 mmol/L (3.4-5.1); Sodium 142 mmol/L (137-145); Total Protein 5.7 g/dL (6.3-8.2)
[2021-07-18 12:32] LABS: Troponin I < 0.012 ng/mL (0.01-0.034)
[2021-07-18 12:35] LABS: Creatine Kinase MB 1.48 ng/mL (<2.37)
--- NOTE | 2021-07-18 12:49 | PC.NURSE ---
pt presented laughing, joyful, animated, stood up on bed, acting inappropriately but following commands. niece stated this was not pt's normal adn this is why she called 911. pt stated she had not had anything to eat or drink this morning but she did take her insulin and oral diabetic medications
--- NOTE | 2021-07-18 12:52 | ED_ITS ---
HPI - Altered Mental Status General Chief Complaint: Altered Mental Status Stated Complaint: Wheezing/ Anxiety Time Seen by Provider: 07/18/21 12:46 Source: family and EMS Mode of arrival: EMS History of Present Illness HPI narrative: Patient is a 70-year-old female history of insulin-dependent diabetes hyperlipidemia hypertension presenting today with altered mental status and difficulty breathing. She states woke up this morning and she was confused according to family. She took her Lantus 52 units at night which she always does and her medication. Woke up with quite confused this morning was evaluated by EMS brought to the ED and found have a glucose of 37. Her mental status has improved in the ED after she was able to drink juice and eat. She now says that she has been a little short of breath the last couple of days. She went to visit her grandson and his CT. She says that she is allergic to catheterize started watering and she started having some trouble breathing. Which has continued for the last couple of days. She denies any cough a productive sputum she has no chest pain. She had a little trouble sleeping last night she denies any swelling in her legs. No prior history of congestive heart failure but she does have a remote history of asthma which she has not had any issues with for a number of years. Related Data Home Medications Medication Instructions Recorded Confirmed metformin 500 mg tablet,extended 1,000 mg PO DAILY #0 01/18/11 05/27/18 release 24 hr (Glucophage XR) insulin glargine 100 unit/mL 55 unit SUBCUT DAILY 05/13/18 05/27/18 subcutaneous solution (Lantus U-100 Insulin) Previous Rx's Medication Instructions Recorded aspirin 325 mg tablet,delayed 325 mg PO QDAY #30 tab 09/04/16 release atorvastatin 40 mg tablet (Lipitor) 40 mg PO HS #30 tab 09/04/16 lisinopril 20 mg tablet 20 mg PO QDAY #30 tab 09/04/16 lidocaine 5 % topical patch 1 patch TOP DAILY #15 each 03/09/21 (Lidoderm) furosemide 20 mg tablet (Lasix) 20 mg PO DAILY #3 tab 07/18/21 potassium chloride 20 mEq 20 meq PO DAILY #3 tab 07/18/21 tablet,extended release(part/cryst) Allergies Allergy/AdvReac Type Severity Reaction Status Date / Time fluoxetine Allergy Unknown edema Verified 03/09/21 14:40 naproxen Allergy Unknown its too Verified 03/09/21 14:40 much for me ofloxacin Allergy Unknown Unknown Verified 03/09/21 14:40 Review of Systems Review of Systems Narrative: GENERAL: + altered mental status, Denies chills, fatigue, malaise, fever, sweats, travel HEENT: Denies sinus pain, ear pain, sore throat, difficulty swallowing, neck pain RESPIRATORY: Denies dyspnea, cough, wheezing, hemoptysis, sputum. CARDIOVASCULAR: Denies chest pain, palpitations, orthopnea, edema GASTROINTESTINAL: Denies nausea, vomiting, abdominal pain, diarrhea, constipation, melena. : Denies dysuria, frequency, incontinence, hematuria, urinary retention, flank pain. MUSCULOSKELETAL: Denies weakness, joint pain, or bony pain SKIN: No rash, no erythema, no pruritus NEUROLOGIC: Denies weakness, dizziness, headache, numbness, change in speech, confusion PSYCHIATRIC: No concerning psychosocial issues. 12 point review of systems is negative except for those stated above and HPI Patient History Social History household members: spouse and children Smoking Status: Never smoker Smoking Status: Never smoker Substance Use Type: does not use Exam Initial Vital Signs Initial Vital Signs: Vital Signs Temperature 98 F 07/18/21 11:53 Pulse Rate 80 07/18/21 11:53 Respiratory Rate 18 07/18/21 11:53 Blood Pressure 146/89 H 07/18/21 11:53 Pulse Oximetry 95 07/18/21 11:53 GENERAL: Alert pleasant 70-year-old female no longer content confused HEENT: Head atraumatic,EOMI, pupils reactive, face symmetric, moist mucous membranes CARDIOVASCULAR: Regular rate and rhythm without murmurs, rubs or gallops. RESPIRATORY: Breath sounds equal bilaterally, no wheezes rales or rhonchi. Slight expiratory wheeze ABDOMEN: Soft, nontender. Normoactive bowel sounds all 4 quadrants. No guarding or rebound. EXTREMITIES: Normal range of motion, no clubbing or edema. Neurovascularly intact NEUROLOGICAL: Alert and oriented x4.Normal gait and speech. Cranial nerves II through XII grossly intact. Good dmilrd-ul-awgz, good jhfx-gl-xned, strength equal bilaterally, no dysarthria or aphasia, sensation in tact to soft touch bilaterally, no visual changes, no facial droop SKIN: Warm, dry, no laceration, no petechiae, no rashes or lesions. Scores NIH Stroke Scale Level of Conciousness: Alert, keenly responsive Ask month/age: Answers both questions correctly. Open/close eyes, close hand: Performs both tasks correctly Best gaze horizontal: Normal Visual wolf: No visual loss Facial palsy: Normal symetrical movement Left arm drift: No drift for full 10 sec Right arm drift: No drift for full 10 sec Left leg drift: No drift for full 5 sec Right leg drift: No drift for full 5 sec Limb ataxia: Absent Sensory on face/arms/legs: Normal, no sensory loss Best language: No aphasia, normal Dysarthria: Normal Extinction or inattention: No abnormality Total NIH Stroke scale score: 0 Course Orders Ordered: ED Orders 07/18/21 11:53 EKG-12 Lead Stat 07/18/21 11:55 BNP [NT-proBNP (BNP-Adult 18+)] Stat Complete Blood Count AUTO DIFF Stat Comprehensive Metabolic Panel Stat Lipase Stat Troponin & CK Cardiac Panel Stat 07/18/21 12:59 Chest [XR chest 1V] Stat 07/18/21 13:05 COVID19 -Nasal RAPID/Pre-Proc Stat Discontinued Medications Albuterol/Ipratropium (Albuterol/Ipratropium 3 Ml Ampul) 3 ml INH NOW ONE Stop: 07/18/21 13:00 Last Admin: 07/18/21 13:49 Dose: 3 ml Documented by: IVETT Furosemide (Furosemide 40 Mg/4 Ml Vial) 20 mg IV NOW ONE Stop: 07/18/21 14:16 Last Admin: 07/18/21 14:25 Dose: 20 mg Documented by: KERVIN Potassium Chloride (Potassium Chloride 20 Meq Tab) 40 meq PO NOW ONE Stop: 07/18/21 14:16 Last Admin: 07/18/21 14:25 Dose: 40 meq Documented by: KERVIN Vital Signs Vital signs: Vital Signs - 8 hr 07/18/21 11:53 07/18/21 12:06 07/18/21 12:09 Temperature 98 F Pulse Rate 80 69 74 Respiratory Rate 18 21 Blood Pressure 146/89 H 232/95 H Pulse Oximetry 95 98 98 07/18/21 12:19 07/18/21 12:30 07/18/21 13:00 Temperature Pulse Rate 68 67 65 Respiratory Rate 23 22 23 Blood Pressure 196/84 H 184/67 H Pulse Oximetry 99 99 100 07/18/21 13:01 07/18/21 13:30 07/18/21 13:35 Temperature Pulse Rate 66 70 67 Respiratory Rate 24 20 20 Blood Pressure 177/76 H 203/84 H 200/77 H Pulse Oximetry 99 99 99 07/18/21 13:49 07/18/21 14:00 07/18/21 14:01 Temperature Pulse Rate 74 76 73 Respiratory Rate 18 20 20 Blood Pressure 195/77 H Pulse Oximetry 99 98 98 07/18/21 14:30 07/18/21 14:31 07/18/21 15:03 Temperature Pulse Rate 72 73 Respiratory Rate 22 22 Blood Pressure 204/77 H Pulse Oximetry 98 98 98 07/18/21 15:04 07/18/21 15:21 Temperature 98 F Pulse Rate 68 Respiratory Rate 22 Blood Pressure 208/85 H 208/85 H Pulse Oximetry 98 MDM - Altered Mental Status Lab Data Result diagrams: 07/18/21 11:55 07/18/21 11:55 Labs: Lab Results 07/18/21 07/18/21 07/18/21 Range/Units 11:55 11:55 11:55 WBC 6.4 (4.5-11.0) X10^3/uL RBC 3.07 L (4.0-5.2) X10^6/uL Hgb 9.0 L (12.0-16.0) g/dL Hct 26.7 L (36-46) % MCV 86.7 (80-100) fL MCH 29.3 (26-34) PG MCHC 33.8 (30-36) % RDW 15.5 H (11.6-14.8) % Plt Count 220 (150-400) X10^3/uL Neut % (Auto) 69.5 (50-75) % Lymph % (Auto) 17.1 L (25-40) % Coffee % (Auto) 9.1 (3-14) % Eos % (Auto) 4.0 (2-4) % Baso % (Auto) 0.3 (0-2) % Neut # (Auto) 4400 (3311-6130) /uL Lymph # (Auto) 1100 (3344-7420) /uL Coffee # (Auto) 600 (0-900) /uL Eos # (Auto) 300 (0-450) /uL Baso # (Auto) 0 (0-100) /uL Sodium 142 (137-145) mmol/L Potassium 2.9 L (3.4-5.1) mmol/L Chloride 113 H (98-107) mmol/L Carbon Dioxide 25 (22-32) mmol/L BUN 16 (7-17) mg/dL Creatinine 1.90 H (0.52-1.04) mg/dL Estimated GFR 28 L (>60) mL/min BUN/Creatinine Ratio 8.4 (6-22) Glucose 56 L (80-110) mg/dL Calcium 7.9 L (8.4-10.2) mg/dL Total Bilirubin 0.6 (0.2-1.3) mg/dL AST 26 (14-36) IU/L ALT 15 (<35) IU/L Alkaline Phosphatase 81 (38-126) U/L Total Creatine Kinase 144 H (30-135) U/L CK-MB (CK-2) 1.48 (<2.37) ng/mL CK-MB (CK-2) Rel Index 1.0 L (1.5-5.0) % Troponin I < 0.012 (0.01-0.034) ng/mL NT-Pro-B Natriuret Pep 2230 H (<125) pg/mL Total Protein 5.7 L (6.3-8.2) g/dL Albumin 2.6 L (3.5-5.0) g/dL Globulin 3.1 (1.7-4.1) g/dL Albumin/Globulin Ratio 0.8 L (1.0-2.8) Lipase 39 (23-300) U/L SARS-CoV-2 (PCR) (Negative) 07/18/21 Range/Units 13:05 WBC (4.5-11.0) X10^3/uL RBC (4.0-5.2) X10^6/uL Hgb (12.0-16.0) g/dL Hct (36-46) % MCV (80-100) fL MCH (26-34) PG MCHC (30-36) % RDW (11.6-14.8) % Plt Count (150-400) X10^3/uL Neut % (Auto) (50-75) % Lymph % (Auto) (25-40) % Coffee % (Auto) (3-14) % Eos % (Auto) (2-4) % Baso % (Auto) (0-2) % Neut # (Auto) (5396-5842) /uL Lymph # (Auto) (1377-8319) /uL Coffee # (Auto) (0-900) /uL Eos # (Auto) (0-450) /uL Baso # (Auto) (0-100) /uL Sodium (137-145) mmol/L Potassium (3.4-5.1) mmol/L Chloride (98-107) mmol/L Carbon Dioxide (22-32) mmol/L BUN (7-17) mg/dL Creatinine (0.52-1.04) mg/dL Estimated GFR (>60) mL/min BUN/Creatinine Ratio (6-22) Glucose (80-110) mg/dL Calcium (8.4-10.2) mg/dL Total Bilirubin (0.2-1.3) mg/dL AST (14-36) IU/L ALT (<35) IU/L Alkaline Phosphatase (38-126) U/L Total Creatine Kinase (30-135) U/L CK-MB (CK-2) (<2.37) ng/mL CK-MB (CK-2) Rel Index (1.5-5.0) % Troponin I (0.01-0.034) ng/mL NT-Pro-B Natriuret Pep (<125) pg/mL Total Protein (6.3-8.2) g/dL Albumin (3.5-5.0) g/dL Globulin (1.7-4.1) g/dL Albumin/Globulin Ratio (1.0-2.8) Lipase (23-300) U/L SARS-CoV-2 (PCR) Negative (Negative) Point of Care Testing Glucose POC 196 Imaging Data Chest x-ray: Radiologist's Impression: [address] [address] XRay Report Signed Patient: Heather Roberts MR#: [id number] : 1950 Acct:[id number] Age/Sex: 70 / F Date of Service: 07/18/21 Loc: ED Accession Number: [id number] ?? Procedure: XR chest 1V Ordering Provider: Lori Rice D.O. PROCEDURE:? XR CHEST 1V ? INDICATIONS:? short of breath ? TECHNIQUE:? One view of the chest was acquired.? ? COMPARISON:? [facility], CR, XR CHEST 2V, 04/09/2021, 15:07. ? FINDINGS:? ? Surgical changes and devices:? None.? ? Lungs and pleura:? Prominence of the interstitial markings, suggesting edema.? No pleural effusions or pneumothorax.? ? Mediastinum:? Enlargement of the cardiac silhouette. ? Bones and chest wall:? No suspicious bony lesions.? Overlying soft tissues appear unremarkable.? ? IMPRESSION:? Cardiomegaly with pulmonary edema pattern. ? The previously demonstrated right nodular density is less apparent.? Consider CT imaging for further evaluation based on the patient's risk factors. ? ? Dictated by: Hai Hinton M.D. on 07/18/2021 at 13:38 ? ? ECG Data Interpretation: Sinus rhythm rate 83 VA interval 160 QRS 82 QTC 407 T-wave inversion noted in lead 3 only, new from prior EKG [facility] 2017 [facility] Narrative Medical decision making narrative: Patient initially is found to be hypoglycemic and confused. This improves with treating the hypoglycemia with food, her glucose is now stable. She has no fo lyndsay deficits. At this time I see no need for head CT. 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 She is complaining of shortness of breath BNP is found to be elevated 2200. She denies any history of congestive heart failure. Chest x- ray also shows pulmonary edema. She is not hypoxic. She is aware that that she is hypokalemic she has been eating but than as regularly to help increase her potassium she probably knee supplement. At this time no need for admission. Recommend that she check her glucose throughout the day and decrease her night Lantus to 40 units tonight and check her glucose in the morning. She does not live alone she lives with her discussed checking glucose if she becomes altered. And how to treat it. Discharge Plan Departure Patient Disposition: Home Clinical Impression: Hypoglycemia, Acute hypokalemia, Congestive heart failure Instructions: Heart Failure Activity Restrictions/Additional Instructions: *You have been diagnosed with congestive heart failure, low potassium, low glucose *What to do: At this time her confusion this morning is likely related to your low sugar. We will decrease her insulin at night please check your sugars every 4 hours for the next 24 hours. Eat regularly. You may need further evaluation such as an echocardiogram in regards to probable congestive heart failure however you not to stay in the emergency department at this time Have your potassium and kidney function recheck next week. *Continue to take medications as directed Lasix 20 mg once a day for 3 days Potassium chloride 20 mEq once a day for 3 days *Follow up with your primary care provider in 2-3 days or call [phone] Follow-up with nephrology next week as scheduled *Return to ER if you should have increasing shortness of breath, confusion, sugar less than 50 (at does not resolve with orange juice or food) or any new, worsening or concerning symptoms Prescriptions: New furosemide [Lasix] 20 mg tablet 20 mg PO DAILY Qty: 3 0RF potassium chloride 20 mEq tablet,ER particles/crystals 20 meq PO DAILY Qty: 3 0RF No Action metformin [Glucophage XR] 500 MG tablet extended release 24 hr 1,000 mg PO DAILY Qty: 0 0RF aspirin 325 MG tablet,delayed release (DR/EC) 325 mg PO QDAY Qty: 30 0RF atorvastatin [Lipitor] 40 MG tablet 40 mg PO HS Qty: 30 0RF lisinopril 20 MG tablet 20 mg PO QDAY Qty: 30 0RF Lantus U-100 Insulin 100 unit/mL Solution 55 unit SUBCUT DAILY 0RF lidocaine [Lidoderm] 5 % adhesive patch,medicated 1 patch TOP DAILY Qty: 15 0RF Rx Instructions: leave on most painful area for 12 hrs Referrals: Arelis Chase MD [Primary Care Provider] -
--- NOTE | 2021-07-18 12:59 | DI.RAD.S_ITS ---
PROCEDURE: XR CHEST 1V INDICATIONS: short of breath TECHNIQUE: One view of the chest was acquired. COMPARISON: [facility], CR, XR CHEST 2V, 04/09/2021, 15:07. FINDINGS: Surgical changes and devices: None. Lungs and pleura: Prominence of the interstitial markings, suggesting edema. No pleural effusions or pneumothorax. Mediastinum: Enlargement of the cardiac silhouette. Bones and chest wall: No suspicious bony lesions. Overlying soft tissues appear unremarkable. IMPRESSION: Cardiomegaly with pulmonary edema pattern. The previously demonstrated right nodular density is less apparent. Consider CT imaging for further evaluation based on the patient's risk factors. Dictated by: Hai Hinton M.D. on 07/18/2021 at 13:38 Approved by: Hai Hinton M.D. on 07/18/2021 at 13:40
[2021-07-18 13:24] LABS: NT-proBNP (BNP-Adult 18+) 2230 pg/mL (<125)
[2021-07-18 13:45] LABS: COVID19 -Nasal RAPID Negative (Negative)
[2021-07-18] MEDS: ALBUTEROL/IPRATROPIUM 3 ML AMPUL INH (13:49)
[2021-07-18] MEDS: FUROSEMIDE 40 MG/4 ML VIAL 20 MG IV (14:25)
[2021-07-18] MEDS: POTASSIUM CHLORIDE 20 MEQ TAB 40 MEQ PO (14:25)
== END 2021-07-18 15:24 | disposition home or self-care (01) ==
PROVIDERS: Emergency Provider Emergency Medicine; PCP Family Medicine
DX: E11.649 Type 2 diabetes mellitus with hypoglycemia without coma (principal); E87.6 Hypokalemia; I50.9 Heart failure, unspecified; Z79.4 Long term (current) use of insulin; Z20.822 Contact with and (suspected) exposure to COVID-19
CPT/HCPCS: 36415; 71045; 80053; 82550; 82553; 82962; 83690; 83880; 84484; 85025; 87635; 93005; 93010; 94640; 96374; 99284; C9803; J1940

== ENCOUNTER → 2021-07-22 18:28 | Outpatient (CLI) | payer OTHER, SELFPAY ==
--- NOTE | 2021-07-22 | DI.RAD.S_ITS ---
PROCEDURE: XR CHEST 2V INDICATIONS: Cough TECHNIQUE: 2 views of the chest were acquired. COMPARISON: [facility], CR, XR CHEST 1V, 07/18/2021, 13:03. FINDINGS: Surgical changes and devices: None. Lungs and pleura: Coarsened interstitial markings. No consolidation, pleural effusions or pneumothorax. Mediastinum: Tortuous thoracic aorta. Mild enlargement of cardiac silhouette. Bones and chest wall: No suspicious bony abnormalities. Soft tissues appear unremarkable. IMPRESSION: Pulmonary edema pattern versus technique. Dictated by: Hai Hinton M.D. on 07/23/2021 at 11:23 Approved by: Hai Hinton M.D. on 07/23/2021 at 11:24
== END ==
PROVIDERS: PCP Family Medicine; Referring Provider Physician Assistant; Visit Provider Physician Assistant
DX: R05.9 Cough, unspecified (principal); I77.89 Other specified disorders of arteries and arterioles
CPT/HCPCS: 71046

== ENCOUNTER → 2021-08-08 12:27 | Outpatient (CLI) | payer OTHER, SELFPAY ==
[2021-08-08 12:53] LABS: Hematocrit 29.9 % (36-46); Hemoglobin 10.1 g/dL (12.0-16.0)
[2021-08-08 13:10] LABS: BUN Creatinine Ratio 9.5 (6-22); Blood Urea Nitrogen 31 mg/dL (7-17); Calcium 8.6 mg/dL (8.4-10.2); Carbon Dioxide 25 mmol/L (22-32); Chloride 113 mmol/L (98-107); Estimated Glomerular Filt Rate 15 mL/min (>60); Glucose 186 mg/dL (80-110); HEMOLYSIS < 15 (0-50); Potassium 4.5 mmol/L (3.4-5.1); Sodium 143 mmol/L (137-145)
[2021-08-08 13:19] LABS: NT-proBNP (BNP-Adult 18+) 455 pg/mL (<125)
[2021-08-08 13:37] LABS: Total Iron Binding Capacity 173 ug/dL (265-497)
[2021-08-08 13:45] LABS: Ferritin 93 ng/mL (11-264)
[2021-08-08 13:47] LABS: Creatinine Urine Random 54.8 mg/dL
[2021-08-08 13:54] LABS: Protein (Total) Urine Random 370 mg/dL (0-12); Protein Creatinine Ratio Urine 6.75 GRAM/24H
[2021-08-08 14:22] LABS: HEMOLYSIS < 15 (0-50); Iron 76 ug/dL (37-170); Percent Iron Saturation 44 % (15-50)
[2021-08-08 14:30] LABS: Transferrin 123 mg/dL (206-381)
== END ==
PROVIDERS: PCP Family Medicine; Referring Provider Student in an Organized Health Care Education/Training Program; Visit Provider Student in an Organized Health Care Education/Training Program
DX: N05.9 Unspecified nephritic syndrome with unspecified morphologic changes (principal); I50.32 Chronic diastolic (congestive) heart failure; D50.0 Iron deficiency anemia secondary to blood loss (chronic); D64.9 Anemia, unspecified; R80.9 Proteinuria, unspecified
CPT/HCPCS: 36415; 80048; 82570; 82728; 83540; 83550; 83880; 84156; 85014; 85018

== ENCOUNTER → 2021-08-16 12:29 | Outpatient (CLI) | payer OTHER, SELFPAY ==
--- NOTE | 2021-08-16 | DI.ECHO.S_ITS ---
[facility]---------+ [facility] +---------+ : : [address] [place] : : : : [id number] : : : : Phone: [phone]+ Echocardiogram Report + + :Name: EDELMIRA GUTIERREZ Study Date: 08/16/2021 Height: 60 in : :[facility] ReadingLocation: Weight: 170 lb : : Gender: Female BSA: 1.7 m2 : :: 1950 Age: 70 yrs BP: 133/69 mmHg: :Reason For Study: HEART FAILURE : :Ordering Physician: ANTONIA, : :LEROY Performed By: Asha Marinelli : :Referring: LEROY WILKES : + + Interpretation Summary 1) Normal left ventricular thickness, size, wall motion, and systolic function (EF 60-65%). 2) Normal right ventricular size and function. 3) The left atrium is severely dilated. 4) There is mild aortic regurgitation. 5) Compared to the Echo done 05/31/2020, no significant change. Procedure: A two-dimensional transthoracic echocardiogram with color flow and Doppler was performed. The study quality was technically adequate. Comparison is made with the echocardiogram of 05/31/2020. The patient was in sinus bradycardia with heart rates between 47-54 bpm during the exam. Left Ventricle: The left ventricle is normal in size and wall thickness. Proximal septal thickening is noted. The ejection fraction is estimated to be 60-65%. Left ventricular systolic function appears normal without focal wall motion abnormalities. Right Ventricle: The right ventricle is normal in size and function. Atria: The left atrium is severely dilated. Right atrial size is normal. There is no Doppler evidence for an interatrial shunt. Mitral Valve: The mitral valve leaflets appear mildly thickened, but open well. There is trace mitral regurgitation. Aortic Valve: The aortic valve is slightly calcified. The aortic valve is trileaflet. The aortic valve opens well. There is no aortic valve stenosis. There is mild aortic regurgitation. Tricuspid Valve: The tricuspid valve is normal in structure and function. There is a trace or physiologic amount of tricuspid regurgitation. Pulmonary artery pressures cannot be estimated because of the lack of a measurable TR jet velocity. Pulmonic Valve: The pulmonic valve leaflets are thin and pliable; valve motion is normal. There is mild pulmonic regurgitation. Great Vessels: The aortic root is normal size. The dimensions of the ascending aorta are normal. The IVC is of normal diameter and collapses greater than 50% with a sniff. This suggests a low right atrial pressure of 3 mm Hg. Pericardium/ Pleura There is no pericardial effusion. There is no pleural effusion. MMode/2D Measurements & Calculations LVIDd: 5.1 cm LVOT diam: 2.1 cm LVIDs: 3.3 cm Ao root diam: 3.6 cm FS: 36.1 % asc Aorta Diam: 3.5 cm IVSd: 0.83 cm Ao Arch Diam (Prox Trans): 3.0 cm LVPWd: 1.1 cm LV arciniega. diameter/BSA (cm/m^2): 2.9 LV sys. diameter/BSA (cm/m^2): 1.9 LA A2 area: 26.1 cm2 RA long axis: 5.0 cm LA A4 area: 25.4 cm2 RA area: 15.6 cm2 LA length (vol): 5.7 cm RA vol: 41.2 ml LA vol: 98.3 ml RA : 23.7 ml/m2 LA vol index: 56.4 ml/m2 IVC diam: 1.3 cm RVD1 (basal): 3.4 cm RVD2 (mid): 3.4 cm TAPSE: 2.2 cm Doppler Measurements & Calculations Ao V2 max: 169.0 cm/sec LVOT Max Maged: 130.5 cm/sec Ao V2 mean: 110.7 cm/sec LV V1 max P.8 mmHg Ao max P.4 mmHg LV V1 VTI: 32.2 cm Ao mean P.8 mmHg DAVE(I,D): 3.0 cm2 Ao V2 VTI: 37.5 cm DAVE(V,D): 2.7 cm2 sev ratio: 0.86 DAVE indexed to BSA (cm^2/m^2): 1.7 AI P1/2t: 787.8 msec AI dec slope: 149.6 cm/sec2 MV E max maged: 63.0 cm/sec PA V2 max: 112.0 cm/sec MV A max maged: 95.7 cm/sec PA V2 mean: 73.1 cm/sec MV E/A: 0.66 PA mean P.5 mmHg Med Peak E' Maged: 3.8 cm/sec PA pr(Accel): 24.2 mmHg E/E' med: 16.6 Lat Peak E' Maged: 6.6 cm/sec E/E' lat: 9.6 E/e' average: 13.1 MV dec time: 0.37 sec SV(LVOT): 111.6 ml Reading Physician:03:11 PM
== END ==
PROVIDERS: PCP Family Medicine; Referring Provider Internal Medicine Cardiovascular Disease; Visit Provider Internal Medicine Cardiovascular Disease
DX: I35.1 Nonrheumatic aortic (valve) insufficiency (principal); I37.1 Nonrheumatic pulmonary valve insufficiency; I50.9 Heart failure, unspecified
CPT/HCPCS: 93306

== ENCOUNTER → 2021-09-03 15:37 | Outpatient (CLI) | payer OTHER, SELFPAY ==
[2021-09-03 16:46] LABS: Hematocrit 27.8 % (36-46); Hemoglobin 9.5 g/dL (12.0-16.0)
[2021-09-03 17:08] LABS: BUN Creatinine Ratio 8.8 (6-22); Blood Urea Nitrogen 25 mg/dL (7-17); Calcium 8.6 mg/dL (8.4-10.2); Carbon Dioxide 25 mmol/L (22-32); Chloride 112 mmol/L (98-107); Estimated Glomerular Filt Rate 18 mL/min (>60); Glucose 106 mg/dL (80-110); HEMOLYSIS < 15 (0-50); Potassium 4.3 mmol/L (3.4-5.1); Sodium 142 mmol/L (137-145)
[2021-09-03 17:17] LABS: NT-proBNP (BNP-Adult 18+) 468 pg/mL (<125)
[2021-09-03 17:20] LABS: HEMOLYSIS < 15 (0-50); Iron 76 ug/dL (37-170)
[2021-09-03 17:41] LABS: Creatinine Urine Random 59.2 mg/dL
[2021-09-03 17:43] LABS: Ferritin 87 ng/mL (11-264)
[2021-09-03 17:48] LABS: Protein (Total) Urine Random 418 mg/dL (0-12); Protein Creatinine Ratio Urine 7.06 GRAM/24H
[2021-09-03 18:45] LABS: Percent Iron Saturation 44 % (15-50); Total Iron Binding Capacity 174 ug/dL (265-497); Transferrin 115 mg/dL (206-381)
== END ==
PROVIDERS: PCP Family Medicine; Referring Provider Student in an Organized Health Care Education/Training Program; Visit Provider Student in an Organized Health Care Education/Training Program
DX: N05.9 Unspecified nephritic syndrome with unspecified morphologic changes (principal); I50.32 Chronic diastolic (congestive) heart failure; D60.0 Chronic acquired pure red cell aplasia; D64.9 Anemia, unspecified; D50.0 Iron deficiency anemia secondary to blood loss (chronic); R80.9 Proteinuria, unspecified
CPT/HCPCS: 36415; 80048; 82570; 82728; 83540; 83550; 83880; 84156; 85014; 85018

== ENCOUNTER → 2021-10-10 12:23 | Outpatient (CLI) | payer OTHER, SELFPAY ==
[2021-10-10 13:10] LABS: BUN Creatinine Ratio 8.7 (6-22); Blood Urea Nitrogen 18 mg/dL (7-17); Calcium 8.3 mg/dL (8.4-10.2); Carbon Dioxide 23 mmol/L (22-32); Chloride 117 mmol/L (98-107); Estimated Glomerular Filt Rate 25 mL/min (>60); Glucose 108 mg/dL (80-110); HEMOLYSIS < 15 (0-50); Potassium 4.9 mmol/L (3.4-5.1); Sodium 141 mmol/L (137-145)
== END ==
PROVIDERS: PCP Family Medicine; Referring Provider Internal Medicine Cardiovascular Disease; Visit Provider Internal Medicine Cardiovascular Disease
DX: I50.9 Heart failure, unspecified (principal); E11.22 Type 2 diabetes mellitus with diabetic chronic kidney disease; N18.4 Chronic kidney disease, stage 4 (severe)
CPT/HCPCS: 36415; 80048

== ENCOUNTER → 2021-10-15 12:17 | Outpatient (CLI) | payer OTHER, SELFPAY ==
[2021-10-15 13:10] LABS: Hematocrit 24.7 % (36-46); Hemoglobin 8.7 g/dL (12.0-16.0)
[2021-10-15 13:31] LABS: HEMOLYSIS < 15 (0-50); Iron 53 ug/dL (37-170)
[2021-10-15 13:36] LABS: BUN Creatinine Ratio 9.1 (6-22); Blood Urea Nitrogen 21 mg/dL (7-17); Calcium 8.5 mg/dL (8.4-10.2); Carbon Dioxide 23 mmol/L (22-32); Chloride 114 mmol/L (98-107); Estimated Glomerular Filt Rate 22 mL/min (>60); Glucose 131 mg/dL (80-110); HEMOLYSIS < 15 (0-50); Potassium 3.8 mmol/L (3.4-5.1); Sodium 142 mmol/L (137-145)
[2021-10-15 13:42] LABS: Percent Iron Saturation 30 % (15-50); Total Iron Binding Capacity 176 ug/dL (265-497); Transferrin 130 mg/dL (206-381)
[2021-10-15 14:09] LABS: Protein (Total) Urine Random 193 mg/dL (0-12)
[2021-10-15 14:11] LABS: Ferritin 101 ng/mL (11-264)
[2021-10-15 15:00] LABS: Creatinine Urine Random 23.6 mg/dL; Protein Creatinine Ratio Urine 8.17 GRAM/24H
[2021-10-16 05:29] LABS: Parathyroid Hormone Int 46 pg/mL (15-65)
== END ==
PROVIDERS: PCP Family Medicine; Referring Provider Student in an Organized Health Care Education/Training Program; Visit Provider Student in an Organized Health Care Education/Training Program
DX: N05.9 Unspecified nephritic syndrome with unspecified morphologic changes (principal); D50.0 Iron deficiency anemia secondary to blood loss (chronic); D64.9 Anemia, unspecified; N25.81 Secondary hyperparathyroidism of renal origin; R80.9 Proteinuria, unspecified
CPT/HCPCS: 36415; 80048; 82570; 82728; 83540; 83550; 83970; 84156; 85014; 85018

== ENCOUNTER → 2021-12-02 17:00 | Outpatient (CLI) | payer OTHER, SELFPAY ==
[2021-12-02 17:23] LABS: Hematocrit 24.7 % (36-46); Hemoglobin 8.6 g/dL (12.0-16.0)
[2021-12-02 17:55] LABS: BUN Creatinine Ratio 11.4 (6-22); Blood Urea Nitrogen 20 mg/dL (7-17); Calcium 8.1 mg/dL (8.4-10.2); Carbon Dioxide 21 mmol/L (22-32); Chloride 117 mmol/L (98-107); Estimated Glomerular Filt Rate 31 mL/min (>60); Glucose 108 mg/dL (80-110); HEMOLYSIS < 15 (0-50); Potassium 3.6 mmol/L (3.4-5.1); Sodium 141 mmol/L (137-145)
[2021-12-02 18:05] LABS: Total Iron Binding Capacity 142 ug/dL (265-497)
[2021-12-02 18:31] LABS: Ferritin 133 ng/mL (11-264)
== END ==
PROVIDERS: PCP Family Medicine; Referring Provider Student in an Organized Health Care Education/Training Program; Visit Provider Student in an Organized Health Care Education/Training Program
DX: N05.9 Unspecified nephritic syndrome with unspecified morphologic changes (principal); D50.0 Iron deficiency anemia secondary to blood loss (chronic); D64.9 Anemia, unspecified
CPT/HCPCS: 36415; 80048; 82728; 83550; 85014; 85018

== ENCOUNTER → 2021-12-27 16:31 | Outpatient (CLI) | payer OTHER, SELFPAY ==
[2021-12-27 16:58] LABS: Hematocrit 25.9 % (36-46)
[2021-12-27 17:21] LABS: HEMOLYSIS < 15 (0-50); Iron 64 ug/dL (37-170)
[2021-12-27 17:32] LABS: Percent Iron Saturation 48 % (15-50); Total Iron Binding Capacity 133 ug/dL (265-497); Transferrin 98 mg/dL (206-381)
[2021-12-27 17:38] LABS: Blood Urea Nitrogen 23 mg/dL (7-17); Calcium 8.2 mg/dL (8.4-10.2); Carbon Dioxide 24 mmol/L (22-32); Chloride 114 mmol/L (98-107); Estimated Glomerular Filt Rate 20 mL/min (>60); Glucose 224 mg/dL (80-110); HEMOLYSIS < 15 (0-50); Potassium 3.9 mmol/L (3.4-5.1); Sodium 142 mmol/L (137-145)
[2021-12-27 18:04] LABS: Ferritin 367 ng/mL (11-264)
== END ==
PROVIDERS: PCP Family Medicine; Referring Provider Student in an Organized Health Care Education/Training Program; Visit Provider Student in an Organized Health Care Education/Training Program
DX: N05.9 Unspecified nephritic syndrome with unspecified morphologic changes (principal); D50.0 Iron deficiency anemia secondary to blood loss (chronic); D64.9 Anemia, unspecified
CPT/HCPCS: 36415; 80048; 82728; 83540; 83550; 85014; 85018

== ENCOUNTER → 2022-01-15 14:14 | Outpatient (CLI) | payer OTHER, SELFPAY ==
[2022-01-15 16:47] LABS: Hematocrit 26.7 % (36-46); Hemoglobin 9.1 g/dL (12.0-16.0)
[2022-01-15 17:00] LABS: BUN Creatinine Ratio 9.8 (6-22); Blood Urea Nitrogen 25 mg/dL (7-17); Carbon Dioxide 23 mmol/L (22-32); Chloride 114 mmol/L (98-107); Estimated Glomerular Filt Rate 20 mL/min (>60); Glucose 129 mg/dL (80-110); HEMOLYSIS < 15 (0-50); Potassium 4.2 mmol/L (3.4-5.1); Sodium 141 mmol/L (137-145)
[2022-01-15 17:10] LABS: NT-proBNP (BNP-Adult 18+) 1610 pg/mL (<125)
== END ==
PROVIDERS: PCP Family Medicine; Referring Provider Student in an Organized Health Care Education/Training Program; Visit Provider Student in an Organized Health Care Education/Training Program
DX: N05.9 Unspecified nephritic syndrome with unspecified morphologic changes (principal); I50.32 Chronic diastolic (congestive) heart failure; D64.9 Anemia, unspecified
CPT/HCPCS: 36415; 80048; 83880; 85014; 85018

== ENCOUNTER → 2022-04-02 14:45 | Outpatient (CLI) | payer OTHER, SELFPAY ==
--- NOTE | 2022-04-02 | DI.RAD.S_ITS ---
PROCEDURE: XR HAND RT MIN 3V INDICATIONS: PAIN OF RIGHT THUMB TECHNIQUE: 3 views of the hand(s) acquired. COMPARISON: None. FINDINGS: Bones: Advanced degenerative changes of the 1st CMC and [id number] scattered arthrosis elsewhere. No displaced fracture or dislocation. Possible old Soft tissues: No suspicious soft tissue calcifications. IMPRESSION: Advanced degenerative changes at the 1st CMC joint. Jhjg-vk-nvrbzsij arthrosis is seen elsewhere. If there is high concern for further derangement, consider MRI evaluation. Dictated by: Jose Armando Shelton M.D. on 04/02/2022 at 16:45 Approved by: Jose Armando Shelton M.D. on 04/02/2022 at 16:46
--- NOTE | 2022-04-02 | DI.RAD.S_ITS ---
PROCEDURE: XR SHOULDER LT MIN 2V INDICATIONS: PAIN OF LEFT ARM TECHNIQUE: 3 views of the shoulder were acquired. COMPARISON: None. FINDINGS: Bones: No fractures or dislocations. Moderate acromioclavicular joint osteoarthritic changes are seen with significant joint space narrowing and subchondral sclerosis. No suspicious bony lesions. Visualized ribs appear intact. Soft tissues: No suspicious soft tissue calcifications. IMPRESSION: Moderate acromioclavicular joint osteoarthritis. No acute shoulder fracture or dislocation. No gross soft tissue abnormalities. Dictated by: Tyler Watters M.D. on 04/02/2022 at 16:19 Approved by: Tyler Watters M.D. on 04/02/2022 at 16:19
[2022-04-02 16:24] LABS: Hematocrit 26.8 % (36-46); Hemoglobin 9.2 g/dL (12.0-16.0)
[2022-04-02 16:33] LABS: BUN Creatinine Ratio 7.6 (6-22); Blood Urea Nitrogen 18 mg/dL (7-17); Calcium 7.6 mg/dL (8.4-10.2); Carbon Dioxide 22 mmol/L (22-32); Chloride 114 mmol/L (98-107); Estimated Glomerular Filt Rate 21 mL/min (>60); Glucose 117 mg/dL (80-110); HEMOLYSIS < 15 (0-50); Potassium 3.5 mmol/L (3.4-5.1); Sodium 140 mmol/L (137-145)
[2022-04-02 17:39] LABS: Folate 12.3 ng/mL (2.76-20.0); Vitamin B12 166 pg/mL (239-931)
[2022-04-02 19:15] LABS: Protein (Total) Urine Random 1670 mg/dL (0-12); Protein Creatinine Ratio Urine 14.39 GRAM/24H
[2022-04-05 07:36] LABS: Parathyroid Hormone Int 81 pg/mL (15-65)
== END ==
PROVIDERS: PCP Family Medicine; Referring Provider Student in an Organized Health Care Education/Training Program; Visit Provider Student in an Organized Health Care Education/Training Program
DX: M19.012 Primary osteoarthritis, left shoulder (principal); M19.041 Primary osteoarthritis, right hand; M79.644 Pain in right finger(s); M79.602 Pain in left arm; D50.0 Iron deficiency anemia secondary to blood loss (chronic); N05.9 Unspecified nephritic syndrome with unspecified morphologic changes; R80.9 Proteinuria, unspecified; D64.9 Anemia, unspecified; N25.81 Secondary hyperparathyroidism of renal origin
CPT/HCPCS: 36415; 73030; 73130; 80048; 82570; 82607; 82746; 83970; 84156; 85014; 85018

== ENCOUNTER → 2022-04-24 15:06 | Outpatient (CLI) | payer OTHER, SELFPAY ==
[2022-04-24] MEDS: EPOETIN ALFA-EPBX 20,000 UNIT/ML VIAL 40000 UNIT SUBCUT (15:14)
== END ==
PROVIDERS: PCP Family Medicine; Referring Provider Student in an Organized Health Care Education/Training Program; Visit Provider Student in an Organized Health Care Education/Training Program
DX: N18.4 Chronic kidney disease, stage 4 (severe) (principal); D63.1 Anemia in chronic kidney disease
CPT/HCPCS: 96372; Q5106

== ENCOUNTER → 2022-05-06 12:33 | Outpatient (CLI) | payer OTHER, SELFPAY ==
[2022-05-06 12:56] LABS: Hematocrit 27.7 % (36-46)
[2022-05-06 13:44] LABS: BUN Creatinine Ratio 6.4 (6-22); Blood Urea Nitrogen 20 mg/dL (7-17); Calcium 7.5 mg/dL (8.4-10.2); Carbon Dioxide 23 mmol/L (22-32); Chloride 117 mmol/L (98-107); Estimated Glomerular Filt Rate 16 mL/min (>60); Glucose 134 mg/dL (80-110); HEMOLYSIS < 15 (0-50); Potassium 4.6 mmol/L (3.4-5.1); Sodium 141 mmol/L (137-145)
[2022-05-08 04:40] LABS: Parathyroid Hormone Int 82 pg/mL (15-65)
== END ==
PROVIDERS: PCP Family Medicine; Referring Provider Student in an Organized Health Care Education/Training Program; Visit Provider Student in an Organized Health Care Education/Training Program
DX: N05.9 Unspecified nephritic syndrome with unspecified morphologic changes (principal); D64.9 Anemia, unspecified; N25.81 Secondary hyperparathyroidism of renal origin
CPT/HCPCS: 36415; 80048; 83970; 85014; 85018

== ENCOUNTER → 2022-05-21 12:58 | Outpatient (CLI) | payer OTHER, SELFPAY ==
[2022-05-21 13:33] VITALS: BP 187/71; PULSE 66; RESP 16; TEMP 37.2; O2SAT 98
[2022-05-21 13:53] VITALS: BP 184/68; PULSE 61
[2022-05-21 13:55] VITALS: BP 187/72
--- NOTE | 2022-05-21 14:13 | PC.NURSE ---
Addendum entered by Leah Johnson R.N. 05/21/22 14:43: last BP 196/76: Kenna from Dr. Hardy's office. Pt sent home to check if she took BP med today. If she did, she will call us or if she didn't, she will take medication and return to clinic by 4pm for injection. Original Note: SBP 180's. Pt states, I don't remember if I took all my BP meds. This RN left message with Dr. Hardy's answering service to call back.
[2022-05-21 14:42] VITALS: BP 196/76
--- NOTE | 2022-05-21 16:26 | ONC.PHA ---
EPO Injection: S/O: 71 y.o. female, with diagnosis of anemia with CKD, is here to start EPO 40,000 units SubQ injection montly if Hgb is below 10 and hold dose if SBP is above 180 with monthly labs prior to each injection. Order is written by Dr. Ade Hardy on 01/21/2022. A/P: Reviewed today labs: Hgb = 8.4 Today BP = 187/72 and recheck BP = 196/76 Iron panel (12/27/2021): Ferritin = 367 (H), Transferrin = 98 (L), % Sat = 48 (WNL), TIBC = 133 (L), Iron = 64 (WNL). Vitamin B12 (04/02/2022) = 166 (L) Folate (04/02/2022) = 12.3 (WNL) Patient reported taking Vitamin B12 1000mcg daily since March 2022. Patient reported her current BP medications as following: Amlodipine 5mg daily, Furosemide 10mg daily, Metoprolol succinate 50mg daily and Spironolactone 25mg daily. Plan to HOLD today EPO dose as SBP is above 180. RN is to notify MD office (see RN today note) Allergies Allergy/AdvReac Type Severity Reaction Status Date / Time fluoxetine Allergy Unknown edema Verified 03/09/21 14:40 naproxen Allergy Unknown its too Verified 03/09/21 14:40 much for me ofloxacin Allergy Unknown Unknown Verified 03/09/21 14:40 Vital Signs Temperature 99.0 F 05/21/22 13:33 Pulse Rate 61 05/21/22 13:53 Pulse Rate 66 05/21/22 13:33 Respiratory Rate 16 05/21/22 13:33 Blood Pressure 196/76 05/21/22 14:42 Blood Pressure 187/72 05/21/22 13:55 Blood Pressure 184/68 05/21/22 13:53 Blood Pressure 187/71 05/21/22 13:33 Pulse Oximetry 98 05/21/22 13:33
--- NOTE | 2022-05-21 16:43 | PC.NURSE ---
Addendum entered by Otilia Pa R.N. 05/21/22 16:51: Provider Answering Service #: [phone] Original Note: HYPERTENSION/ EPO HELD This RN left message w/ Dr. Hardy's answering service to inform them that Pt's BP after taking her medication was still high, 189/70. Still awaiting a call back. Epo injection held today and Pt to schedule for next week. Dr. Hardy will need to send a new order for epo and labs for next week.
== END ==
PROVIDERS: PCP Family Medicine; Referring Provider Family Medicine; Visit Provider Student in an Organized Health Care Education/Training Program
DX: N18.4 Chronic kidney disease, stage 4 (severe) (principal); D63.1 Anemia in chronic kidney disease
CPT/HCPCS: 36415

== ENCOUNTER → 2022-06-02 14:10 | Outpatient (CLI) | payer OTHER, SELFPAY ==
[2022-06-02 15:21] LABS: BUN Creatinine Ratio 6.5 (6-22); Blood Urea Nitrogen 22 mg/dL (7-17); Calcium 7.6 mg/dL (8.4-10.2); Carbon Dioxide 22 mmol/L (22-32); Chloride 113 mmol/L (98-107); Estimated Glomerular Filt Rate 14 mL/min (>60); Glucose 129 mg/dL (80-110); HEMOLYSIS < 15 (0-50); Potassium 3.8 mmol/L (3.4-5.1); Sodium 139 mmol/L (137-145)
== END ==
PROVIDERS: PCP Family Medicine; Referring Provider Student in an Organized Health Care Education/Training Program; Visit Provider Student in an Organized Health Care Education/Training Program
DX: N18.4 Chronic kidney disease, stage 4 (severe) (principal); D63.1 Anemia in chronic kidney disease
CPT/HCPCS: 36415; 80048; 85018

== ENCOUNTER → 2022-06-02 14:27 | Outpatient (CLI) | payer OTHER, SELFPAY ==
[2022-06-02 14:39] VITALS: BP 142/55; PULSE 56; RESP 16; TEMP 37.2; O2SAT 98
[2022-06-02] MEDS: EPOETIN ALFA-EPBX 20,000 UNIT/ML VIAL 40000 UNIT SUBCUT (15:34)
== END ==
PROVIDERS: PCP Family Medicine; Referring Provider Family Medicine; Visit Provider Student in an Organized Health Care Education/Training Program
DX: N18.4 Chronic kidney disease, stage 4 (severe) (principal); D63.1 Anemia in chronic kidney disease
CPT/HCPCS: 36415; 80048; 85018; 96372; Q5106

== ENCOUNTER → 2022-06-24 11:30 | Outpatient (CLI) | payer OTHER, SELFPAY ==
[2022-06-24 12:54] LABS: Hematocrit 28.7 % (36-46); Hemoglobin 9.5 g/dL (12.0-16.0)
[2022-06-24 13:27] LABS: BUN Creatinine Ratio 8.7 (6-22); Blood Urea Nitrogen 31 mg/dL (7-17); Calcium 7.8 mg/dL (8.4-10.2); Carbon Dioxide 19 mmol/L (22-32); Chloride 114 mmol/L (98-107); Estimated Glomerular Filt Rate 13 mL/min (>60); Glucose 135 mg/dL (80-110); HEMOLYSIS < 15 (0-50); Potassium 3.6 mmol/L (3.4-5.1); Sodium 141 mmol/L (137-145)
[2022-06-26 07:47] LABS: Parathyroid Hormone Int 54 pg/mL (15-65)
== END ==
PROVIDERS: PCP Family Medicine; Referring Provider Student in an Organized Health Care Education/Training Program; Visit Provider Student in an Organized Health Care Education/Training Program
DX: N05.9 Unspecified nephritic syndrome with unspecified morphologic changes (principal); D64.9 Anemia, unspecified; N25.81 Secondary hyperparathyroidism of renal origin
CPT/HCPCS: 36415; 80048; 83970; 85014; 85018

== ENCOUNTER → 2022-07-21 15:23 | Outpatient (CLI) | payer OTHER, SELFPAY ==
[2022-07-21 17:14] LABS: Hematocrit 26.4 % (36-46)
[2022-07-21 17:40] LABS: BUN Creatinine Ratio 10.8 (6-22); Blood Urea Nitrogen 33 mg/dL (7-17); Calcium 7.9 mg/dL (8.4-10.2); Carbon Dioxide 21 mmol/L (22-32); Chloride 118 mmol/L (98-107); Estimated Glomerular Filt Rate 16 mL/min (>60); Glucose 90 mg/dL (80-110); HEMOLYSIS < 15 (0-50); Potassium 4.2 mmol/L (3.4-5.1); Sodium 142 mmol/L (137-145)
== END ==
PROVIDERS: PCP Family Medicine; Referring Provider Student in an Organized Health Care Education/Training Program; Visit Provider Student in an Organized Health Care Education/Training Program
DX: N05.9 Unspecified nephritic syndrome with unspecified morphologic changes (principal); D64.9 Anemia, unspecified
CPT/HCPCS: 36415; 80048; 85014; 85018

== ENCOUNTER → 2022-07-30 15:35 | Outpatient (CLI) | payer OTHER, SELFPAY ==
[2022-07-30] MEDS: EPOETIN ALFA-EPBX 20,000 UNIT/ML VIAL 40000 UNIT SUBCUT (15:42)
== END ==
PROVIDERS: PCP Family Medicine; Referring Provider Internal Medicine Nephrology; Visit Provider Internal Medicine Nephrology
DX: N18.4 Chronic kidney disease, stage 4 (severe) (principal); D63.1 Anemia in chronic kidney disease
CPT/HCPCS: 85025; 96372; Q5106

== ENCOUNTER → 2022-08-18 13:54 | Outpatient (CLI) | payer OTHER, SELFPAY ==
[2022-08-18 14:37] LABS: Hematocrit 26.1 % (36-46); Hemoglobin 8.7 g/dL (12.0-16.0); Mean Corpuscular HGB Conc 33.3 % (30-36); Mean Corpuscular Hemoglobin 29.7 PG (26-34); Mean Corpuscular Volume 89.2 fL (80-100); Platelet Count 263 X10^3/uL (150-400); Red Blood Cell Count 2.92 X10^6/uL (4.0-5.2); Red Cell Distribution Width 16.4 % (11.6-14.8); White Blood Cell Count 4.9 X10^3/uL (4.5-11.0)
[2022-08-18 15:02] LABS: BUN Creatinine Ratio 6.6 (6-22); Blood Urea Nitrogen 34 mg/dL (7-17); Calcium 7.9 mg/dL (8.4-10.2); Carbon Dioxide 17 mmol/L (22-32); Chloride 116 mmol/L (98-107); Estimated Glomerular Filt Rate 8 mL/min (>60); Glucose 85 mg/dL (80-110); HEMOLYSIS < 15 (0-50); Potassium 4.2 mmol/L (3.4-5.1); Sodium 139 mmol/L (137-145)
[2022-08-18 15:11] LABS: NT-proBNP (BNP-Adult 18+) 5400 pg/mL (<125)
== END ==
PROVIDERS: PCP Family Medicine; Referring Provider Student in an Organized Health Care Education/Training Program; Visit Provider Student in an Organized Health Care Education/Training Program
DX: N05.9 Unspecified nephritic syndrome with unspecified morphologic changes (principal); I50.32 Chronic diastolic (congestive) heart failure; D70.9 Neutropenia, unspecified; D63.1 Anemia in chronic kidney disease
CPT/HCPCS: 36415; 80048; 83880; 85027

== ENCOUNTER → 2022-08-20 12:45 | Outpatient (CLI) | payer OTHER, SELFPAY ==
--- NOTE | 2022-08-20 12:48 | DI.RAD.S_ITS ---
PROCEDURE: XR CHEST 2V INDICATIONS: SCREEN FOR TB TECHNIQUE: 2 views of the chest were acquired. COMPARISON: [facility], CR, XR CHEST 2V, 04/09/2021, 15:07. [facility], CR, XR CHEST 2V, 07/22/2021, 18:24. FINDINGS: Surgical changes and devices: None. Lungs and pleura: Chronic diffuse interstitial thickening. No nodules, masses, consolidations, or effusions. Mediastinum: Mild, stable cardiomegaly. Similar compared to the prior study but increased compared to 04/09/21. Normal and stable mediastinal contour. Bones and chest wall: No suspicious bony abnormalities. Soft tissues appear unremarkable. Mild chronic T12 compression fracture. IMPRESSION: 1. No suspicious pulmonary nodule to indicate granulomatous disease. 2. Mild chronic cardiomegaly with diffuse interstitial thickening suggesting chronic edema. Dictated by: Gracia Brown M.D. on 08/20/2022 at 14:50 Approved by: Gracia Brown M.D. on 08/20/2022 at 14:53
[2022-08-20 16:22] LABS: Hepatitis B Surface Antigen NEGATIVE s/c (NEGATIVE)
[2022-08-21 04:55] LABS: Hepatitis B Core Antibody Negative (Negative)
[2022-08-22 04:08] LABS: Hepatitis B Surf Ab Qualitativ Non Reactive (.)
== END ==
PROVIDERS: PCP Family Medicine; Referring Provider Student in an Organized Health Care Education/Training Program; Visit Provider Student in an Organized Health Care Education/Training Program
DX: Z11.1 Encounter for screening for respiratory tuberculosis (principal); I51.7 Cardiomegaly; N18.6 End stage renal disease; B19.10 Unspecified viral hepatitis B without hepatic coma
CPT/HCPCS: 36415; 71046; 86704; 86706; 87340

== ENCOUNTER → 2022-09-02 13:35 | Outpatient (CLI) | payer OTHER, SELFPAY ==
[2022-09-02 13:57] LABS: Hematocrit 24.2 % (36-46); Hemoglobin 8.1 g/dL (12.0-16.0)
[2022-09-02 14:19] LABS: BUN Creatinine Ratio 6.5 (6-22); Blood Urea Nitrogen 31 mg/dL (7-17); Calcium 7.8 mg/dL (8.4-10.2); Carbon Dioxide 21 mmol/L (22-32); Chloride 116 mmol/L (98-107); Estimated Glomerular Filt Rate 9 mL/min (>60); Glucose 96 mg/dL (80-110); HEMOLYSIS < 15 (0-50); Potassium 3.5 mmol/L (3.4-5.1); Sodium 141 mmol/L (137-145)
== END ==
PROVIDERS: PCP Family Medicine; Referring Provider Student in an Organized Health Care Education/Training Program; Visit Provider Student in an Organized Health Care Education/Training Program
DX: N18.4 Chronic kidney disease, stage 4 (severe) (principal); D63.1 Anemia in chronic kidney disease
CPT/HCPCS: 36415; 80048; 85014; 85018

== ENCOUNTER → 2022-09-02 14:08 | Outpatient (CLI) | payer OTHER, SELFPAY ==
[2022-09-02 14:44] VITALS: BP 134/55; PULSE 73; RESP 16; TEMP 37; O2SAT 99
[2022-09-02] MEDS: EPOETIN ALFA-EPBX 40,000 UNIT/ML VIAL 40000 UNIT SUBCUT (14:53)
--- NOTE | 2022-09-02 14:54 | ONC.PHA ---
EPO Injection: S/O: 71 y.o. female, with diagnosis of anemia with CKD, is here for montly EPO 40,000 units SubQ injection if Hgb is below 10, hold dose if SBP is above 180 and reschedule the injection and remind patient to take her BP medications before she arrives and notify MD office, and monthly labs (Hgb and BMP) prior to each injection. Order is written by Dr. Ade Hardy on 05/22/2022. Please note, last EPO dose was given on 07/30/2022. A/P: Reviewed today labs: Hgb/Hct = 8.1/24.2 Today BP = 135/55 Iron panel (12/27/2021): Ferritin = 367 (H), Transferrin = 98 (L), % Sat = 48 (WNL), TIBC = 133 (L), Iron = 64 (WNL). Vitamin B12 (04/02/2022) = 166 (L) Folate (04/02/2022) = 12.3 (WNL) Patient reported taking Vitamin B12 1000mcg daily since March 2022. Patient reported her current BP medications as following: Amlodipine 5mg daily, Furosemide 10mg daily, Metoprolol succinate 50mg daily and Spironolactone 25mg daily. RN is to remind patient to make an appointment for EPO injection every 4 weeks and to take her HTN medications in the morning of the EPO injection day. Plan to proceed with today EPO dose as Hgb is below 10 and SBP is below 180. Allergies Allergy/AdvReac Type Severity Reaction Status Date / Time fluoxetine Allergy Unknown edema Verified 03/09/21 14:40 naproxen Allergy Unknown its too Verified 03/09/21 14:40 much for me ofloxacin Allergy Unknown Unknown Verified 03/09/21 14:40 Vital Signs Temperature 98.6 F 09/02/22 14:44 Pulse Rate 73 09/02/22 14:44 Respiratory Rate 16 09/02/22 14:44 Blood Pressure 134/55 09/02/22 14:44 Pulse Oximetry 99 09/02/22 14:44
== END ==
PROVIDERS: PCP Family Medicine; Referring Provider Family Medicine; Visit Provider Family Medicine
DX: N18.4 Chronic kidney disease, stage 4 (severe) (principal); D63.1 Anemia in chronic kidney disease
CPT/HCPCS: 36415; 80048; 85014; 85018; 96372; Q5106

== ENCOUNTER 2024-01-12 16:55 | Emergency (ER) | payer OTHER, SELFPAY ==
[2024-01-12] VITALS (10 sets, daily range): BP systolic 113–142; BP diastolic 54–64; PULSE 56–62; RESP 15–24; TEMP 36.1; O2SAT 91–99; BMI 33.4
--- NOTE | 2024-01-12 18:08 | DI.RAD.S_ITS ---
PROCEDURE: XR CHEST 1V INDICATIONS: chest pain TECHNIQUE: One view of the chest was acquired. COMPARISON: [facility], CR, XR CHEST 2V, 08/20/2022, 12:51. FINDINGS: Surgical changes and devices: None. Lungs and pleura: Lungs are clear. No pleural effusions or pneumothorax. Mediastinum: Mediastinal contours appear normal. Heart size is mildly enlarged. Bones and chest wall: No suspicious bony lesions. Overlying soft tissues appear unremarkable. IMPRESSION: Mild cardiomegaly. No acute cardiopulmonary abnormalities or focal consolidation. Dictated by: aSw Robins M.D. on 01/12/2024 at 19:23 Approved by: Saw Robins M.D. on 01/12/2024 at 19:24
[2024-01-12 18:13] LABS: Add Manual Diff / Slide Review NO; Basophils Absolute Auto 0 /uL (0-100); Basophils Percent Auto 0.7 % (0-2); Eosinophils Absolute Auto 200 /uL (0-450); Eosinophils Percent Auto 3.9 % (2-4); Hematocrit 36.4 % (36-46); Hemoglobin 12.1 g/dL (12.0-16.0); Lymphocytes Absolute Auto 1600 /uL (1100-4500); Lymphocytes Percent Auto 38.6 % (25-40); Mean Corpuscular HGB Conc 33.3 % (30-36); Mean Corpuscular Hemoglobin 30.1 PG (26-34); Mean Corpuscular Volume 90.5 fL (80-100); Monocytes Absolute Auto 600 /uL (0-900); Monocytes Percent Auto 13.6 % (3-14); Neutrophils Absolute Auto 1800 /uL (1500-7000); Neutrophils Percent Auto 43.2 % (50-75); Platelet Count 167 X10^3/uL (150-400); Red Blood Cell Count 4.02 X10^6/uL (4.0-5.2); Red Cell Distribution Width 16.1 % (11.6-14.8); White Blood Cell Count 4.3 X10^3/uL (4.5-11.0)
--- NOTE | 2024-01-12 18:19 | EKG_ITS ---
[address] [address] Test Date: 2024-01-12 Pat Name: Heather Roberts Department: [facility] Room: Gender: Female Residential Program Coordinator: ISELA : 1950 Requested By: Order Number: [id number] Reading MD: Dane Butler MD Measurements Intervals Wade Rate: 64 P: 22 NC: 168 QRS: 55 QRSD: 90 T: 67 QT: 480 QTc: 495 Interpretive Statements Normal sinus rhythm Nonspecific T wave abnormality Prolonged QT Electronically Signed On 01-13-2024 7:48:40 PDT by Dane Butler MD
[2024-01-12 18:28] LABS: Prothrombin Time 11.8 SECONDS (9.4-12.5)
[2024-01-12 18:31] LABS: PTT Partial Thromboplastin Tim 33 SECONDS (25.1-36.5)
[2024-01-12 18:32] LABS: Alanine Aminotransferase 20 IU/L (<35); Albumin 3.5 g/dL (3.5-5.0); Albumin Globulin Ratio 1.3 (1.0-2.8); Alkaline Phosphatase 101 U/L (38-126); Aspartate Aminotransferase 22 IU/L (14-36); BUN Creatinine Ratio 10.2 (6-22); Bilirubin Total 1.1 mg/dL (0.2-1.3); Blood Urea Nitrogen 53 mg/dL (7-17); Calcium 8.5 mg/dL (8.4-10.2); Carbon Dioxide 23 mmol/L (22-32); Chloride 104 mmol/L (98-107); Creatine Kinase 78 U/L (30-135); Estimated Glomerular Filt Rate 8 mL/min (>60); Globulin 2.8 g/dL (1.7-4.1); Glucose 91 mg/dL (80-110); HEMOLYSIS 22 (0-50); Lipase 109 U/L (23-300); Potassium 3.9 mmol/L (3.4-5.1); Sodium 136 mmol/L (137-145); Total Protein 6.3 g/dL (6.3-8.2)
[2024-01-12 18:44] LABS: NT-proBNP (BNP-Adult 18+) 2070 pg/mL (<125); Troponin I < 0.012 ng/mL (0.01-0.034)
--- NOTE | 2024-01-12 19:46 | ED_ITS ---
HPI - Anxiety General Chief Complaint: Anxiety Stated Complaint: Anxiety, Time Seen by Provider: 01/12/24 19:46 Source: patient Mode of arrival: Ambulatory Limitations: no limitations History of Present Illness HPI narrative: 73-year-old female history of end-stage renal disease on Thursday dialysis. Patient presents with complaint of feeling very anxious. She states that she had missed her usual dialysis time at 5:00 a.m. in the morning had gone to a and then was scheduled to go to dialysis this evening. She called her dialysis center who told her that she should come to the ED to be evaluated before going to dialysis. She states she felt very anxious very shaky like she might have a seizure. She states she has never had a seizure. She did not have any seizure activity she would lose any consciousness. She has had a recent cold but states she has been improving she denies any fevers no new cold cough or congestion symptoms denies any chest pain or shortness of breath, she was nauseated earlier but states that has resolved no vomiting. No new swelling of her extremities. She states she is feeling improved at this time. Patient's family is bedside. Related Data Home Medications Medication Instructions Recorded Confirmed metformin 500 mg tablet,extended 1,000 mg PO DAILY ##0 01/18/11 05/27/18 release 24 hr (Glucophage XR) insulin glargine 100 unit/mL 20 unit SUBCUT DAILY 05/13/18 05/27/18 subcutaneous solution (Lantus U-100 Insulin) furosemide 20 mg tablet (Lasix) 20 mg PO DAILY 04/23/22 amlodipine 5 mg tablet 5 mg 04/24/22 ascorbic acid (vitamin C) 1,000 mg 1,000 mg PO DAILY 04/24/22 04/24/22 tablet atorvastatin 40 mg tablet (Lipitor) 80 mg PO HS 04/24/22 cholecalciferol (vitamin D3) 25 25 mcg PO DAILY 04/24/22 04/24/22 mcg (1,000 unit) tablet cimetidine 800 mg tablet 800 mg PO BEDTIME 04/24/22 04/24/22 ferrous sulfate 325 mg (65 mg mg 04/24/22 iron) tablet flash glucose scanning reader 04/24/22 04/24/22 (FreeStyle Aminata 2 Brandamore) flash glucose sensor (FreeStyle 04/24/22 04/24/22 Aminata 14 Day Sensor kit) losartan 50 mg tablet 50 mg DAILY 04/24/22 04/24/22 metoprolol succinate 50 mg 50 mg PO DAILY 04/24/22 04/24/22 tablet,extended release 24 hr oxybutynin chloride 15 mg mg PO 04/24/22 tablet,extended release 24 hr pen needle, diabetic 31 gauge x 04/24/22 04/24/22 1/4 (UltiCare Pen Needle) spironolactone 25 mg tablet 25 mg PO DAILY 04/24/22 04/24/22 Previous Rx's Medication Instructions Recorded potassium chloride 20 mEq 20 meq PO DAILY #3 tabs 07/18/21 tablet,extended release(part/cryst) Allergies Allergy/AdvReac Type Severity Reaction Status Date / Time fluoxetine Allergy Unknown edema Verified 01/12/24 17:05 naproxen Allergy Unknown its too Verified 01/12/24 17:05 much for me ofloxacin Allergy Unknown Unknown Verified 01/12/24 17:05 Review of Systems Review of Systems ROS Unobtainable: All systems reviewed & are unremarkable except as noted in HPI and below Patient History Social History household members: spouse and children Smoking Status: Never smoker Smoking Status: Never smoker Substance Use Type: does not use Exam Narrative Exam Narrative: GENERAL: Alert and oriented x three, female in no acute distress. No diaphoresis. HEENT: Head normocephalic, atraumatic, EOMI, pupils reactive, face symmetric, moist mucous membranes NECK: Supple, full range of motion CARDIOVASCULAR: Regular rate and rhythm without murmurs, rubs or gallops. No JVD. No edema bilateral lower extremities. RESPIRATORY: Breath sounds equal bilaterally, no wheezes rales or rhonchi. ABDOMEN: Soft, nontender. Normoactive bowel sounds all 4 quadrants. No guarding or rebound, rigidity, no mass : No CVA tenderness EXTREMITIES: Normal range of motion, no clubbing or edema. Neurovascularly intact NEUROLOGICAL: Cranial nerves II through XII grossly intact. Moving all extremities SKIN: Warm, dry, no petechiae, no rashes or lesions. Initial Vital Signs Initial Vital Signs: Vital Signs Temperature 96.9 F L 01/12/24 17:03 Pulse Rate 62 01/12/24 17:03 Respiratory Rate 16 01/12/24 17:03 Blood Pressure 142/64 H 01/12/24 17:03 Pulse Oximetry 96 01/12/24 17:03 Oxygen Delivery Method Room Air 01/12/24 17:03 Course Orders Ordered: ED Orders 01/12/24 18:03 Complete Blood Count AUTO DIFF Stat Comprehensive Metabolic Panel Stat Lipase Stat Magnesium Stat NT-proBNP (BNP-Adult 18+) Stat PTT Partial Thromboplastin Terrell Stat Prothrombin Time INR Stat Troponin & CK Cardiac Panel Stat 01/12/24 18:08 XR chest 1V Stat EKG-12 Lead Stat Vital Signs Vital signs: Vital Signs - 8 hr 01/12/24 20:30 01/12/24 20:30 Pulse Rate 62 Respiratory Rate 18 Blood Pressure 129/61 Pulse Oximetry 98 MDM - Anxiety Lab Data 01/12/24 18:03 01/12/24 18:03 Labs: Lab Results 01/12/24 Range/Units 18:03 WBC 4.3 L (4.5-11.0) X10^3/uL RBC 4.02 (4.0-5.2) X10^6/uL Hgb 12.1 (12.0-16.0) g/dL Hct 36.4 (36-46) % MCV 90.5 (80-100) fL MCH 30.1 (26-34) PG MCHC 33.3 (30-36) % RDW 16.1 H (11.6-14.8) % Plt Count 167 (150-400) X10^3/uL Neut % (Auto) 43.2 L (50-75) % Lymph % (Auto) 38.6 (25-40) % Daggett % (Auto) 13.6 (3-14) % Eos % (Auto) 3.9 (2-4) % Baso % (Auto) 0.7 (0-2) % Neut # (Auto) 1800 (3473-5937) /uL Lymph # (Auto) 1600 (9872-6900) /uL Daggett # (Auto) 600 (0-900) /uL Eos # (Auto) 200 (0-450) /uL Baso # (Auto) 0 (0-100) /uL PT 11.8 (9.4-12.5) SECONDS INR 1.0 (0.9-1.3) APTT 33 (25.1-36.5) SECONDS Sodium 136 L (137-145) mmol/L Potassium 3.9 (3.4-5.1) mmol/L Chloride 104 (98-107) mmol/L Carbon Dioxide 23 (22-32) mmol/L BUN 53 H (7-17) mg/dL Creatinine 5.21 H (0.52-1.04) mg/dL Estimated GFR 8 L (>60) mL/min BUN/Creatinine Ratio 10.2 (6-22) Glucose 91 (80-110) mg/dL Calcium 8.5 (8.4-10.2) mg/dL Magnesium 2.0 (1.6-2.3) mg/dL Total Bilirubin 1.1 (0.2-1.3) mg/dL AST 22 (14-36) IU/L ALT 20 (<35) IU/L Alkaline Phosphatase 101 (38-126) U/L Total Creatine Kinase 78 (30-135) U/L Troponin I < 0.012 (0.01-0.034) ng/mL NT-Pro-B Natriuret Pep 2070 H (<125) pg/mL Total Protein 6.3 (6.3-8.2) g/dL Albumin 3.5 (3.5-5.0) g/dL Globulin 2.8 (1.7-4.1) g/dL Albumin/Globulin Ratio 1.3 (1.0-2.8) Lipase 109 (23-300) U/L Imaging Data Chest x-ray: Radiologist's Impression: Close Chest X-Ray (Signed) Saw Robins - 01/12/24 Chest X-Ray (Signed) Gracia Brown - 08/20/22 Shoulder X-Ray (Signed) Tyler Watters - 04/02/22 Hand X-Ray (Signed) Jose Armando Shelton - 04/02/22 Echocardiogram Ultrasound (Signed) Ema Wilkes - 08/16/21 Chest X-Ray (Signed) Hai Hinton - 07/22/21 Chest X-Ray (Signed) Hai Hinton - 07/18/21 Chest X-Ray (Signed) Vilma Horton - 04/09/21 Lumbar Spine X-Ray (Signed) Rocky Lynne - 03/09/21 Echocardiogram Ultrasound (Signed) Nils Webster - 05/31/20 Renal Ultrasound (Signed) Jalil Cardenas - 11/25/19 Ribs X-Ray (Signed) Humza Gil - 11/22/19 Mammogram Screening (Signed) Saw Robins - 03/04/19 Launch?Image [address] [address] XRay Report Signed Patient: Heather Roberts MR#: [id number] : 1950 Acct:[id number] Age/Sex: 73 / F Date of Service: 01/12/24 Loc: ED Accession Number: [id number] Procedure: XR chest 1V Ordering Provider: Sweetie Muhammad D.O. PROCEDURE: XR CHEST 1V INDICATIONS: chest pain TECHNIQUE: One view of the chest was acquired. COMPARISON: [facility], , XR CHEST 2V, 08/20/2022, 12:51. FINDINGS: Surgical changes and devices: None. Lungs and pleura: Lungs are clear. No pleural effusions or pneumothorax. Mediastinum: Mediastinal contours appear normal. Heart size is mildly enlarged. Bones and chest wall: No suspicious bony lesions. Overlying soft tissues appear unremarkable. IMPRESSION: Mild cardiomegaly. No acute cardiopulmonary abnormalities or focal consolidation. Dictated by: Saw Robins M.D. on 01/12/2024 at 19:23 Approved by: Saw Robins M.D. on 01/12/2024 at 19:24 ECG Data Attestation: I personally reviewed and interpreted this ECG as follows: Prior ECG tracings: available for review Interpretation: Sinus rhythm rate of 64 NC 168 QRS of 90 QTC of [address] changes appreciated. Patient has prior from 07/18/2021 with nonspecific change. MDM Narrative Medical decision making narrative: 73-year-old female with history of dialysis felt shaky anxious and drained and came for evaluation after being diverted by her dialysis center. Was at a earlier today any different foods had a blood sugar of 116 prior to arrival but noted it was higher at home. EKG shows sinus rhythm, nonspecific change Labs show white count of 4.3 hemoglobin of 12.1, platelets of 167. Chemistries shows sodium 136 potassium of 3.9 chloride of 104 CO2 of 23 with a BUN of 53 and a creatinine 5.21 patient was supposed to attend dialysis today, troponins less than 0.012 with a BNP of 20 70. Patient has prior BNP was 5400 in August of 2022. Chest x-ray shows mild cardiomegaly, no acute cardiopulmonary abnormalities otherwise. No focal consolidation. 73-year-old female on dialysis had missed her usual time but was scheduled to be dialyzed later in the day after attending a . Patient felt very anxious and off contacted her dialysis center who sent her for evaluation. Patient has an elevation in her BNP but is actually improved from priors and did miss her dialysis today her electrolytes are overall appropriate, labs show some nonspecific changes with a white count of 4.3 platelets of 167 but patient has no acute infectious or some stomach changes currently. Vitals have been overall appropriate. Patient would like to be discharged home. Discharge Plan Departure Patient Disposition: Home Clinical Impression: Low platelet count Activity Restrictions/Additional Instructions: Your workup does not show any specific changes to cause your symptoms today, your platelets are little bit low, continue to follow these with your physician but are unlikely the source of your symptoms today. I hope you are dialysis centers able to get you rescheduled tomorrow. Please return if you have new or worsening symptoms or any other new or concerning changes. Prescriptions: No Action metformin [Glucophage XR] 500 MG tablet extended release 24 hr 1,000 mg PO DAILY Qty: 0 potassium chloride 20 mEq tablet,ER particles/crystals 20 meq PO DAILY Qty: 3 0RF insulin glargine [Lantus U-100 Insulin] 100 unit/mL Solution 20 unit SUBCUT DAILY furosemide [Lasix] 20 mg tablet 20 mg PO DAILY atorvastatin [Lipitor] 40 MG tablet 80 mg PO HS metoprolol succinate 50 mg Tablet Extended Release 24 Hr 50 mg PO DAILY (DME) FreeStyle Aminata 2 Brandamore Misc MISCELLANEOUS cholecalciferol (vitamin D3) 25 mcg (1,000 unit) Tablet 25 mcg PO DAILY ferrous sulfate 325 mg (65 mg iron) Tablet losartan 50 mg Tablet 50 mg DAILY (DME) pen needle, diabetic [UltiCare Pen Needle] 31 gauge x 1/4 Needle MISCELLANEOUS oxybutynin chloride 15 mg Tablet Extended Release 24hr PO (DME) FreeStyle Aminata 14 Day Sensor Kit MISCELLANEOUS cimetidine 800 mg Tablet 800 mg PO BEDTIME amlodipine 5 mg Tablet 5 mg ascorbic acid (vitamin C) 1,000 mg Tablet 1,000 mg PO DAILY spironolactone 25 mg Tablet 25 mg PO DAILY Referrals: Arelis Chase MD [Primary Care Provider] - Stand Alone Forms: Patient Portal/API
== END 2024-01-12 21:10 | disposition home or self-care (01) ==
PROVIDERS: Emergency Provider Emergency Medicine; PCP Family Medicine
DX: D69.6 Thrombocytopenia, unspecified (principal); N18.6 End stage renal disease; Z99.2 Dependence on renal dialysis
CPT/HCPCS: 36415; 71045; 80053; 82550; 83690; 83735; 83880; 84484; 85025; 85610; 85730; 93005; 93010; 99284

== ENCOUNTER → 2024-02-24 13:16 | Outpatient (CLI) | payer OTHER, SELFPAY ==
--- NOTE | 2024-02-24 13:17 | DI.CT.S_ITS ---
PROCEDURE: CT KIDNEY URETER BLADDER (KUB) INDICATIONS: END STAGE RENAL DISEASE / PREPPING FOR TRANSPLANT TECHNIQUE: Axial sections were acquired from the lung bases to the pubic symphysis. Coronal and sagittal reformats were performed. For radiation dose reduction, the following was used: automated exposure control, adjustment of mA and/or kV according to patient size. COMPARISON: None. FINDINGS: Image quality: Diagnostic. Lower Chest: Small hiatal hernia. URINARY: Right Kidney: No stones or hydronephrosis. Atrophic. Right Ureter: No hydroureter. Left Kidney: No stones or hydronephrosis. Atrophic. Left Ureter: No hydroureter. Bladder: Normal wall thickness. No stones. ABDOMEN: Liver: Nodular liver contour. Gallbladder: Absent. Biliary ducts: No biliary dilation. Pancreas: No ductal dilation. Spleen: Size is within normal limits. Adrenal Glands: No adrenal nodules. Stomach and Bowel: Normal colonic caliber, without significant wall thickening. Mild colonic diverticulosis without evidence of diverticulitis. Normal appendix. Peritoneum: No abnormal intraperitoneal fluid. No free air. Ventral Wall: No hernia. Abdominal Nodes: No enlarged retroperitoneal or mesenteric lymph nodes. Vessels: Aorta and inferior vena cava are normal in size. No significant atherosclerotic disease. PELVIS: Pelvic Organs: Unremarkable. Pelvic Nodes: Unremarkable. Miscellaneous: No inguinal hernias are seen. Bones: Grade 1 anterolisthesis L4 on L5 due to facet arthrosis. Osteoporosis by Hounsfield units criteria. IMPRESSION: Atrophic kidneys. No significant atherosclerotic disease. Nodular liver contour, suggestive of cirrhosis. Osteoporosis by Hounsfield units criteria. Dictated by: Jimbo Winter M.D. on 02/25/2024 at 11:33 Approved by: Jimbo Winter M.D. on 02/25/2024 at 11:37
--- NOTE | 2024-02-24 13:17 | DI.US.S_ITS ---
PROCEDURE: US ABDOMEN COMPLETE INDICATIONS: END STAGE RENAL DISEASE / PREPPING FOR TRANSPLANT TECHNIQUE: Real-time scanning was performed of the abdominal and retroperitoneal organs, with image documentation. COMPARISON: [facility], US, US CAROTID DOPPLER BI, 02/24/2024, 14:05. [facility], CT, CT KIDNEY URETER BLADDER (KUB), 02/24/2024, 13:35. FINDINGS: Liver: Liver is normal in size and homogeneous in echotexture. Gallbladder: Removed. Biliary ducts: Intrahepatic bile ducts are non-dilated. Extrahepatic bile duct caliber measures 9 mm. Normal is 6-7 mm or less in diameter, or 10 mm or less post-cholecystectomy. Pancreas: Visualized portions of the pancreas are sonographically normal. Spleen: Spleen is normal in size and homogeneous in echotexture. Kidneys: Kidneys are normal in size and echotexture. Right kidney measures 10 point cm long; left kidney measures 9.8 cm long. No hydronephrosis or nephrolithiasis. No solid masses. Prominent bilateral renal pyramids can be seen. Aorta: Visualized aorta is normal in caliber at less than 3 cm. Iliacs: Proximal common iliac arteries are normal in caliber at less than 2.5 cm. IVC: Intrahepatic inferior vena cava is patent. Miscellaneous: No free abdominal fluid. IMPRESSION: Cholecystectomy, without biliary dilatation. No significant ultrasound abnormality is seen. Dictated by: Jalil Cardenas M.D. on 02/24/2024 at 15:13 Approved by: Jalil Cardenas M.D. on 02/24/2024 at 15:14
--- NOTE | 2024-02-24 13:17 | DI.US.S_ITS ---
PROCEDURE: US CAROTID DOPPLER BI INDICATIONS: END STAGE RENAL DISEASE / PREPPING FOR TRANSPLANT TECHNIQUE: Color and pulse Doppler interrogation was performed of both carotid systems, with image documentation and velocity measurements. COMPARISON: [facility], CT, CT KIDNEY URETER BLADDER (KUB), 02/24/2024, 13:35. [facility], US, US ABDOMEN COMPLETE, 02/24/2024, 14:20. FINDINGS: Stenosis calculations are based on SRU (Society of Radiologists in Ultrasound) criteria. The flow velocities and the arterial waveforms are normal within both carotid arterial systems. The estimated degree of internal carotid artery stenosis is less than 50%. Antegrade flow is confirmed within both vertebral arteries. IMPRESSION: Normal. Dictated by: Jalil Cardenas M.D. on 02/24/2024 at 15:54 Approved by: Jalil Cardenas M.D. on 02/24/2024 at 15:55
== END ==
PROVIDERS: PCP Family Medicine; Referring Provider Family Medicine; Visit Provider Family Medicine
DX: N18.6 End stage renal disease (principal); K44.9 Diaphragmatic hernia without obstruction or gangrene; N26.1 Atrophy of kidney (terminal); K57.90 Diverticulosis of intestine, part unspecified, without perforation or abscess without bleeding; M47.816 Spondylosis without myelopathy or radiculopathy, lumbar region; M43.16 Spondylolisthesis, lumbar region; M81.0 Age-related osteoporosis without current pathological fracture; Z90.49 Acquired absence of other specified parts of digestive tract
CPT/HCPCS: 74176; 76700; 93880

== ENCOUNTER → 2024-03-25 10:30 | Outpatient (CLI) | payer OTHER, SELFPAY ==
--- NOTE | 2024-03-25 10:32 | DI.NM.S_ITS ---
PROCEDURE: NM ADI PERF SPECT R&S PHARM Rest and pharmacological stress myocardial perfusion SPECT with gated imaging and ejection fraction RADIOPHARMACEUTICAL: 10.9 mCi Tc-99m tetrafosmin IV at rest and 25.2 mCi Tc-99m tetrafosmin IV at peak effect of pharmacological stress. [id number] was performed. INDICATIONS: END STAGE RENAL DISEASE TECHNIQUE: Radiopharmaceutical was injected at peak stress test, and also at rest. SPECT images were obtained. SPECT myocardial perfusion images were displayed in short axis, horizontal long axis, and vertical long axis views. Gated images were reviewed using Fortumo software. COMPARISON: None. CARDIAC STRESS: A pharmacologic stress test was performed under the supervision of an attending staff, using an infusion of lexiscan 0.4mg IV x1. Hemodynamic data: There is normal blood pressure and heart rate response to pharmacologic stress. Symptoms: The patient denied anginal chest pain. Aminophylline: none EKG: No diagnostic changes of ischemia; no ectopy. FINDINGS: Raw data: There is good myocardial uptake of radiotracer. No significant motion artifacts. Vspy-dx-zelxw ratio is 0.3 (normal is less than 0.38 for tetrafosmin tracer). Left ventricle function: Gated images demonstrate normal left ventricular wall thickening. No segmental wall motion abnormalities. No transient ischemic dilation; TID is 0.93 (normal less than 1.3). Left ventricle resting end diastolic volume is 86mL. Left ventricle stress ejection fraction is 87%; normal range is above 45%. Myocardial perfusion: Moderately intense fixed distal anterior wall defect that resolves with prone imaging, suggesting breast attenuation artifact. No ischemia and no infarction present. IMPRESSION: Low risk, normal pharm nuclear stress test from inducible ischemia standpoint. 1) Moderately intense fixed distal anterior wall defect that resolves with prone imaging, suggesting breast attenuation artifact. No ischemia and no infarction present. 2) Normal left ventricular size, wall motion, and systolic function (EF post stress 87%). 3) No angina during the study. 4) No diagnostic ST changes during the study. 5) No prior nuclear stress test available for comparison. Dictated by: Ema Wilkes MD on 03/25/2024 at 16:39 Approved by: Ema Wilkes MD on 03/25/2024 at 16:42
== END ==
PROVIDERS: PCP Family Medicine; Referring Provider Family Medicine; Visit Provider Family Medicine
DX: N18.6 End stage renal disease (principal)
CPT/HCPCS: 78452; 93017; A9502; J2785

== ENCOUNTER → 2024-04-04 13:58 | Outpatient (CLI) | payer OTHER, SELFPAY ==
--- NOTE | 2024-04-04 | DI.ECHO.S_ITS ---
[facility] : : [address] : : [place] : : [id number] : : Phone: [phone] Echocardiogram Report + + :Name: EDELMIRA GUTIERREZ Study Date: 04/04/2024 Height: 58 in : :[facility] ReadingLocation: Weight: 164 lb : : Gender: Female BSA: 1.7 m2 : :: 1950 Age: 73 yrs BP: 132/67 mmHg: :Reason For Study: ESRD : :Ordering Physician: LEO, : :EMAM Performed By: Connor Johnson : :Referring: EMMA BAILEY : + + Interpretation Summary The ejection fraction is estimated to be 60-65%. Grade II diastolic dysfunction. The right ventricle is normal in size and function. Inspiratory collapse cannot be assessed because of mechanical ventilation, thus CVP cannot be estimated.. No signficant valvular abnormality. Procedure: A two-dimensional transthoracic echocardiogram with color flow and Doppler was performed. The study quality was technically good. Comparison is made with the echocardiogram of 08/16/2021. The patient was in normal sinus rhythm during the exam. Left Ventricle: The left ventricle is normal in size. There is normal left ventricular wall thickness. There is no ventricular septal defect visualized. The ejection fraction is estimated to be 60-65%. There are no focal wall motion abnormalities. Grade II diastolic dysfunction. Right Ventricle: The right ventricle is normal in size and function. Atria: The left atrium is moderately dilated. Right atrial size is normal. There is no Doppler evidence for an interatrial shunt. Mitral Valve: The mitral valve leaflets appear normal. There is no evidence of stenosis, fluttering, or prolapse. There is mild mitral annular calcification. There is no mitral regurgitation noted. Aortic Valve: The aortic valve is trileaflet. There is mild aortic valve sclerosis. The aortic valve opens well. There is no hemodynamically significant valvular aortic stenosis. There is trace aortic regurgitation. Tricuspid Valve: The tricuspid valve leaflets are thin and pliable. There is a trace or physiologic amount of tricuspid regurgitation. Pulmonic Valve: The pulmonic valve leaflets are thin and pliable; valve motion is normal. There is no pulmonic valvular regurgitation. Great Vessels: The aortic root is mildly dilated. The dimensions of the ascending aorta are normal. The pulmonary artery is normal size. Inspiratory collapse cannot be assessed because of mechanical ventilation, thus CVP cannot be estimated.. Pericardium/ Pleura There is no pericardial effusion. There is no pleural effusion. MMode/2D Measurements & Calculations LVIDd: 5.5 cm LVOT diam: 2.1 cm LVIDs: 3.4 cm Ao root diam: 3.8 cm FS: 38.4 % asc Aorta Diam: 3.4 cm EPSS: 0.65 cm IVSd: 0.91 cm LVPWd: 0.80 cm LV arciniega. diameter/BSA (cm/m^2): 3.3 LV sys. diameter/BSA (cm/m^2): 2.0 LA A2 area: 19.9 cm2 RA long axis: 3.8 cm LA A4 area: 22.3 cm2 RA area: 9.0 cm2 LA length (vol): 5.8 cm RA vol: 18.1 ml LA vol: 64.6 ml RA : 10.8 ml/m2 LA vol index: 38.6 ml/m2 IVC diam: 2.0 cm RVD1 (basal): 3.0 cm RVD2 (mid): 2.8 cm TAPSE: 3.0 cm Doppler Measurements & Calculations Ao V2 max: 175.3 cm/sec LVOT Max Maged: 119.0 cm/sec Ao V2 mean: 125.0 cm/sec LV V1 max P.7 mmHg Ao max P.3 mmHg LV V1 VTI: 29.2 cm Ao mean P.0 mmHg DAVE(I,D): 2.4 cm2 Ao V2 VTI: 40.0 cm DAVE(V,D): 2.2 cm2 sev ratio: 0.73 DAVE indexed to BSA (cm^2/m^2): 1.4 MV E max maged: 82.2 cm/sec TR max maged: 230.2 cm/sec MV A max maged: 97.8 cm/sec TR max P.2 mmHg MV E/A: 0.84 PA V2 max: 75.2 cm/sec Med Peak E' Maged: 4.5 cm/sec PA V2 mean: 51.9 cm/sec E/E' med: 18.2 PA mean P.2 mmHg Lat Peak E' Maged: 4.7 cm/sec PA pr(Accel): 15.6 mmHg E/E' lat: 17.4 E/e' average: 17.8 MV dec time: 0.30 sec SV(LVOT): 96.5 ml Reading Physician:ÁLVARO
== END ==
PROVIDERS: PCP Family Medicine; Referring Provider Family Medicine; Visit Provider Family Medicine
DX: N18.6 End stage renal disease (principal); I34.81 Nonrheumatic mitral (valve) annulus calcification; I35.8 Other nonrheumatic aortic valve disorders; I77.810 Thoracic aortic ectasia
CPT/HCPCS: 93306

== ENCOUNTER → 2024-06-18 13:00 | Outpatient (CLI) | payer OTHER, SELFPAY ==
--- NOTE | 2024-06-18 13:03 | DI.MG.S_ITS ---
MM screening mammo BI: 06/18/2024. BI-RADS: 2 CLINICAL: 73-year old female for bilateral screening mammogram. Tyrer-Cuzick lifetime risk of 2.8%. No personal or first-degree family history of breast cancer. PRIOR EXAMS 03/04/2019, 10/29/2016. MAMMOGRAPHY TECHNIQUE: 2D and 3D (tomosynthesis) digital mammographic views obtained, with additional images as needed for full coverage. Current study was also evaluated with a Computer Aided Detection (CAD) system. DENSITY B. There are scattered areas of fibroglandular density. MAMMOGRAPHY FINDINGS Bilateral: Typically-benign vascular calcifications noted. IMPRESSION: * No evidence of malignancy with benign findings. RECOMMENDATIONS Bilateral * Annual screening mammography. OVERALL ASSESSMENT CATEGORY BI-RADS-2: Benign. The [employer] recommends annual screening mammography beginning at age 40 for women with average risk of breast cancer. ELECTRONICALLY SIGNED: Gracia Brown M.D. on 06/20/2024 at 12:18:22 PM PT Interpreting Station ID: [id number]
== END ==
PROVIDERS: PCP Family Medicine; Referring Provider Family Medicine; Visit Provider Family Medicine
DX: Z12.31 Encounter for screening mammogram for malignant neoplasm of breast (principal)
CPT/HCPCS: 77063; 77067

== ENCOUNTER → 2024-08-22 16:44 | Outpatient (CLI) | payer OTHER, SELFPAY ==
--- NOTE | 2024-08-22 16:50 | DI.RAD.S_ITS ---
PROCEDURE: XR CHEST 2V INDICATIONS: KIDNEY TRANSPLANT CANDIDATE TECHNIQUE: 2 views of the chest were acquired. COMPARISON: [facility], , XR CHEST 1V, 01/12/2024, 18:08. FINDINGS: Heart, mediastinum and pulmonary vascular: Heart is normal in size and configuration. Mediastinum is unremarkable. Pulmonary vascular is normal. Lungs: Clear Pleural spaces: Normal-no effusions or pneumothorax. Bones and soft tissues: Severe degenerative disc disease is seen throughout the upper midthoracic spine IMPRESSION: No cardiopulmonary disease Dictated by: Dane Noonan M.D. on 08/23/2024 at 10:02 Approved by: Dane Noonan M.D. on 08/23/2024 at 10:02
== END ==
PROVIDERS: PCP Nurse Practitioner Family; Referring Provider Nurse Practitioner Family; Visit Provider Nurse Practitioner Family
DX: Z76.82 Awaiting organ transplant status (principal); M51.34 Other intervertebral disc degeneration, thoracic region
CPT/HCPCS: 71046